=== PATIENT | male | born 2000 | race African-American/Black ===

== ENCOUNTER 2023-07-02 19:16 | Observation (INO) ==
[2023-07-02 20:34] LABS: Appearance Urine Clear (Clear); Bilirubin Urine Negative (Negative); Blood Urine Negative (Negative); Color Urine Yellow; Glucose Urine UA Negative (Negative); Ketones Urine Negative (Negative); Leukocyte Esterase Urine Negative (Negative); Nitrite Urine Negative (Negative); Protein Urine Negative (Negative); Specific Gravity Urine 1.021 (1.000-1.030); Urobilinogen Urine Negative (Negative); pH Urine 7.5 (4.5-7.5)
[2023-07-02 20:48] LABS: Alanine Aminotransferase 9 U/L (7-52); Albumin Globulin Ratio 0.8 (0.9-2); Albumin Level 3.1 gm/dl (3.4-5.0); Alkaline Phosphatase 80 U/L (34-104); Anion Gap 6 (3-11); Aspartate Aminotransferase 15 U/L (13-39); BUN Creatinine Ratio 12.3 (10-20); Bilirubin,Total 0.5 mg/dl (0.2-1.0); Blood Urea Nitrogen 8 mg/dl (6-23); Calcium 8.7 mg/dl (8.6-10.3); Carbon Dioxide 28 mmol/L (21-32); Chloride 104 mmol/L (98-107); Est GFR (African American) > 150.0 ml/min; Est GFR (Non-African American) 139.1 ml/min; Globulin 4.1 gm/dl (2.5-4.0); Glucose 78 mg/dl (70-99(Fasting)); Potassium 3.6 mmol/L (3.5-5.1); Sodium 138 mmol/L (136-145); Total Protein 7.2 gm/dl (6.0-8.3)
--- NOTE | 2023-07-02 20:52 | Emergency Department Note ---
Impression & Plan Suicidal ideation, COVID-19 ED Provider Note NAME: KEKE VILLAR AGE: 22 SEX: M : 2000 ARRIVES VIA: Walk-In INFORMANT: [Patient][mother] ED PROVIDER(S): [Kye Hoff MD] CHIEF COMPLAINT: Mental health evaluation HISTORY OF PRESENT ILLNESS: The patient is a 22-year-old male who presents to the ER for a mental health evaluation. The patient states that he has had some suicidal thoughts for years but things have worsened lately. He is not sure why. He sent a text to his family today saying that he wishes he were . He has no true plan outlined but he has thought about ways to harm himself. The patient has had a 50 or so pound weight loss over the last few months. He just has no appetite. The patient has never been hospitalized for mental health issues. He is not on any psychiatric meds. He has no outpatient psychiatric providers. PMHx/PSHx/Social Hx: See Below PHYSICAL EXAM: GENERAL: Patient is in no acute distress. Quite thin. HEENT: No acute trauma, normocephalic atraumatic, mucous membranes moist, no nasal congestion. NECK: No stridor, no adenopathy, no meningismus, trachea is midline. LUNGS: Clear to auscultation bilaterally, no wheeze, no rhonchi, breath sounds equal. HEART: Without murmurs gallops or rubs, regular rate and rhythm. ABDOMEN: Soft, nontender, no peritonitis. EXTREMITIES: No cyanosis, full range of motion of all the joints without pain or difficulty. NEUROLOGIC: Oriented x 3, no acute motor or sensory deficits, no focal weakness. SKIN: No jaundice, no diaphoresis. Psychiatric: Cooperative, voluntary, admits to suicidal ideation without any outlined plan. DIFFERENTIAL DIAGNOSIS: Psychosis, suicidality, depression anxiety, thyroid disorder, drug abuse, among others. EMERGENCY DEPARTMENT PROCEDURES: MEDICAL DECISION MAKING: There is a lower white count, hemoglobin and platelet count. This suppression could be secondary to viral illness. There is no renal failure or significant electrolyte abnormality. No concerning liver enzyme elevation. The patient appeared to be in a euthyroid state. Urinalysis did not show infection. Urine tox was positive for marijuana. COVID test returned positive. Aspirin, Tylenol and alcohol levels were undetectable. On exam, the patient was thin, he was not in any distress. He did admit to some suicidal ideation. Patient was seen by psychiatry case management. After a long discussion with the patient and his family, hospitalization for his suicidality was felt warranted. Unfortunately, with the positive COVID-19 finding, patient will need to be admitted to the medical service with a psychiatry consult. Of note, the patient is asymptomatic with the regard to his COVID-19 finding, he has not had cough, cold or congestion. I did speak with case management, the on-call hospitalist was consulted. Prior/Outside records/notes reviewed: Imaging/x-ray results per my interpretation: Chronic Medical/Social conditions affecting care: History of adoption. Care/Management discussed with: Psychiatry case management. Level of care consideration(s): After review of the information above and other included data: --I believe the patient requires escalation of care to admission DISPOSITION: Admission with psychiatry consult Past Med/Surg History Medical History No significant medical problems Social History Smoking Status: Current some day smoker Feels Safe at Home: Yes Gender Identity: Male Allergies Allergies Allergy/AdvReac Type Severity Reaction Status Date / Time No Known Allergies Allergy Verified 07/02/23 23:36 Home Meds Home Medications Medication Instructions Recorded Confirmed No Known Home Medications 07/02/23 07/02/23 Results & Data (ED) Vital Signs Vital Signs - 24 hr 07/02/23 19:26 07/02/23 21:17 Temperature 36.3 C L Temperature Source Temporal Artery Scan Pulse Rate 106 H Pulse Rate [Finger] 96 H Pulse Rhythm Regular Pulse Strength Normal Respiratory Rate 20 18 Respiratory Effort / Characteristics Non-Labored Spontaneous Respiratory Depth Normal Blood Pressure 112/65 Blood Pressure [Right Arm] 118/68 Blood Pressure Mean 80 Blood Pressure Mean [Right Arm] 84 Blood Pressure Position Sitting Pulse Oximetry 100 98 Oxygen Delivery Method Room Air Sepsis Recent Fever Within 48 Hours No Sepsis New/Unexplained Change in Mental Status N/A Sepsis Action Taken by Nursing No Action Required Home Medications Current Medication List: was personally reviewed by me Laboratory Data Attestation: I reviewed the patient's lab results. 07/02/23 20:06 07/02/23 20:06 Lab Results 07/02/23 07/02/23 07/02/23 Range/Units 19:42 20:06 20:54 WBC 3.69 L (4.8-10.8) K/ul RBC 4.55 L (4.70-6.10) M/uL Hgb 11.4 L (14.0-18.0) g/dl Hct 37.8 L (42.0-52.0) % MCV 83.1 (80.0-100.0) fL MCH 25.1 (25.0-34.0) pg MCHC 30.2 L (32.0-36.0) g/dL RDW Std Deviation 44.3 (36.4-46.3) fL RDW Coeff of Hima 14.6 H (11.5-14.5) % Plt Count 117 L (130-400) K/uL Immature Gran % (Auto) 0.5 % Neut % (Auto) 47.9 % Lymph % (Auto) 27.1 % Custer % (Auto) 22.0 % Eos % (Auto) 2.2 % Baso % (Auto) 0.3 % Neut # (Auto) 1.77 (1.40-6.50) K/uL Lymph # (Auto) 1.00 L (1.20-3.40) K/uL Custer # (Auto) 0.81 H (0.11-0.59) K/uL Eos # (Auto) 0.08 (0.00-0.50) K/uL Baso # (Auto) 0.01 (0.00-0.20) K/uL Immature Gran # (Auto) 0.02 (0.01-0.20) K/uL Platelet Estimate Decreased L (Normal) Giant Platelets 2+ Sodium 138 (136-145) mmol/L Potassium 3.6 (3.5-5.1) mmol/L Chloride 104 (98-107) mmol/L Carbon Dioxide 28 (21-32) mmol/L Anion Gap 6 (3-11) BUN 8 (6-23) mg/dl Creatinine 0.65 (0.6-1.4) mg/dl Est Cr Clr Drug Dosing 148.0 ml/min Est GFR ( Amer) > 150.0 ml/min Est GFR (Non-Af Amer) 139.1 ml/min BUN/Creatinine Ratio 12.3 (10-20) Glucose 78 (70-99(Fasting)) mg/dl Calcium 8.7 (8.6-10.3) mg/dl Total Bilirubin 0.5 (0.2-1.0) mg/dl AST 15 (13-39) U/L ALT 9 (7-52) U/L Alkaline Phosphatase 80 (34-104) U/L Total Protein 7.2 (6.0-8.3) gm/dl Albumin 3.1 L (3.4-5.0) gm/dl Globulin 4.1 H (2.5-4.0) gm/dl Albumin/Globulin Ratio 0.8 L (0.9-2) TSH 0.802 (0.300-4.500) uIu/ml Urine Color Yellow Urine Appearance Clear (Clear) Urine pH 7.5 (4.5-7.5) Ur Specific [place] 1.021 (1.000-1.030) Urine Protein Negative (Negative) Urine Glucose (UA) Negative (Negative) Urine Ketones Negative (Negative) Urine Blood Negative (Negative) Urine Nitrite Negative (Negative) Urine Bilirubin Negative (Negative) Urine Urobilinogen Negative (Negative) Ur Leukocyte Esterase Negative (Negative) Salicylates Cancelled < 3.0 L Urine Opiates Screen Neg (Neg) Ur Methadone, Qual Neg (Neg) Acetaminophen Cancelled < 3 L Urine Barbiturates Neg (Neg) Ur Phencyclidine (PCP) Neg (Neg) U Amphetamin/Meth Scrn Neg (Neg) MDMA (Ecstasy) Screen Neg (Neg) U Benzodiazepines Scrn Neg (Neg) Ur Cocaine Metabolite Neg (Neg) U Marijuana (THC) Screen Pos H (Neg) Ethyl Alcohol mg/dL < 10.0 (<10.0) mg/dl SARS-CoV-2, RNA, NAAT (NEGATIVE) 07/02/23 Range/Units 21:50 WBC (4.8-10.8) K/ul RBC (4.70-6.10) M/uL Hgb (14.0-18.0) g/dl Hct (42.0-52.0) % MCV (80.0-100.0) fL MCH (25.0-34.0) pg MCHC (32.0-36.0) g/dL RDW Std Deviation (36.4-46.3) fL RDW Coeff of Hima (11.5-14.5) % Plt Count (130-400) K/uL Immature Gran % (Auto) % Neut % (Auto) % Lymph % (Auto) % Custer % (Auto) % Eos % (Auto) % Baso % (Auto) % Neut # (Auto) (1.40-6.50) K/uL Lymph # (Auto) (1.20-3.40) K/uL Custer # (Auto) (0.11-0.59) K/uL Eos # (Auto) (0.00-0.50) K/uL Baso # (Auto) (0.00-0.20) K/uL Immature Gran # (Auto) (0.01-0.20) K/uL Platelet Estimate (Normal) Giant Platelets Sodium (136-145) mmol/L Potassium (3.5-5.1) mmol/L Chloride (98-107) mmol/L Carbon Dioxide (21-32) mmol/L Anion Gap (3-11) BUN (6-23) mg/dl Creatinine (0.6-1.4) mg/dl Est Cr Clr Drug Dosing ml/min Est GFR ( Amer) ml/min Est GFR (Non-Af Amer) ml/min BUN/Creatinine Ratio (10-20) Glucose (70-99(Fasting)) mg/dl Calcium (8.6-10.3) mg/dl Total Bilirubin (0.2-1.0) mg/dl AST (13-39) U/L ALT (7-52) U/L Alkaline Phosphatase (34-104) U/L Total Protein (6.0-8.3) gm/dl Albumin (3.4-5.0) gm/dl Globulin (2.5-4.0) gm/dl Albumin/Globulin Ratio (0.9-2) TSH (0.300-4.500) uIu/ml Urine Color Urine Appearance (Clear) Urine pH (4.5-7.5) Ur Specific [place] (1.000-1.030) Urine Protein (Negative) Urine Glucose (UA) (Negative) Urine Ketones (Negative) Urine Blood (Negative) Urine Nitrite (Negative) Urine Bilirubin (Negative) Urine Urobilinogen (Negative) Ur Leukocyte Esterase (Negative) Salicylates Urine Opiates Screen (Neg) Ur Methadone, Qual (Neg) Acetaminophen Urine Barbiturates (Neg) Ur Phencyclidine (PCP) (Neg) U Amphetamin/Meth Scrn (Neg) MDMA (Ecstasy) Screen (Neg) U Benzodiazepines Scrn (Neg) Ur Cocaine Metabolite (Neg) U Marijuana (THC) Screen (Neg) Ethyl Alcohol mg/dL (<10.0) mg/dl SARS-CoV-2, RNA, NAAT POSITIVE A* (NEGATIVE) Discharge Plan Visit Data Chief Complaint: Mental Health Evaluation Stated Complaint: HAVING SUICIDAL THOUGHTS ED Provider: Kye Hoff Discharge Problem: Suicidal ideation, COVID-19 Patient Disposition: Admitted As Inpatient Condition: Fair Forms Stand Alone Forms: [facility], Suicide Prevention Resources Prescriptions Prescriptions: No Action No Known Home Medications Referrals Referrals: PCP,NO [Primary Care Provider] -
[2023-07-02 21:01] LABS: Basophils # (auto) 0.01 K/uL (0.00-0.20); Basophils % (auto) 0.3 %; Eosinophils # (auto) 0.08 K/uL (0.00-0.50); Eosinophils % (auto) 2.2 %; Giant Platelets 2+; Hematocrit (blood only) 37.8 % (42.0-52.0); Hemoglobin 11.4 g/dl (14.0-18.0); Immature Granulocytes # (auto) 0.02 K/uL (0.01-0.20); Immature Granulocytes % (auto) 0.5 %; Lymphocytes % (auto) 27.1 %; Mean Corpuscular Hemoglobin 25.1 pg (25.0-34.0); Mean Corpuscular Hgb Conc 30.2 g/dL (32.0-36.0); Mean Corpuscular Volume 83.1 fL (80.0-100.0); Monocytes # (auto) 0.81 K/uL (0.11-0.59); Neutrophils # (auto) 1.77 K/uL (1.40-6.50); Neutrophils % (auto) 47.9 %; Platelet Count 117 K/uL (130-400); Platelet Estimate Decreased (Normal); RDW Coefficient of Variation 14.6 % (11.5-14.5); RDW Standard Deviation 44.3 fL (36.4-46.3); Red Blood Count 4.55 M/uL (4.70-6.10); White Blood Count 3.69 K/ul (4.8-10.8)
[2023-07-02 21:05] LABS: Thyroid Stimulating Hormone 0.802 uIu/ml (0.300-4.500)
[2023-07-02 21:13] LABS: Amphetamines+Metham, Urine Neg (Neg); Barbiturates, Urine Neg (Neg); Benzodiazepine, Urine Neg (Neg); Cocaine, Urine Neg (Neg); MDMA (Ecstacy), Urine Neg (Neg); Marijuana, Urine Pos (Neg); Methadone, Urine Neg (Neg); Opiate, Urine Neg (Neg); Phencyclidine, Urine Neg (Neg)
[2023-07-02 21:57] LABS: Acetaminophen < 3 ug/ml (10-30); Salicylate < 3.0 mg/dl (3.0-30)
[2023-07-03 02:04] LABS: Magnesium 1.9 mg/dl (1.7-2.4); Phosphorus 3.5 mg/dl (2.5-4.9)
--- NOTE | 2023-07-03 02:10 | History & Physical Report ---
Date of Service July 03, 2023 Assessment & Plan (1) Suicidal ideation: Plan: 22 M with no significant PMH, who presented to the emergency room for mental health evaluation for months of suicidal ideation. Stable, admitted to hospital for medical management of COVID-19, awaiting psychiatric evaluation. Suicidal ideation -No past medical history of anxiety, depression. Denies family history of behavioral health issues. * Admitted to [facility] (currently in [facility]) * Psychiatry consult placed appreciate evaluation, recs COVID-19 positive -Asymptomatic. Lab workup negative. -Will not treat. * Isolation precautions (COVID-19) placed Code: Full code Dispo: Med-Surg (U) FEN/GI: Regular diet (safe tray) DVT Prophylaxis: None PT/OT: No Consults: Psychiatry Case Management: No (2) COVID-19: History of Present Illness Primary Care Provider: NO PCP Odell is a 22-year-old male with no significant past medical history who presents to the emergency room after having several months of suicidal ideation without planning or action. Patient self presented with his mother for a mental health evaluation. Per ED note, patient had suicidal thoughts for years but that thoughts have worsened recently. He denies any acute stressors or major life changes. Again, per ED note, patient sent text message to his family explicitly stating that he wished he was . When asked in the ED, he denies having progressed beyond the contemplative stage. He denies any hallucinations, family history of behavioral health conditions, or outpatient behavioral health encounters. ED note had mentioned 50 pound weight loss. However, on admission interview, he notes that he went from approximately 150 to 125 pounds. In the ED, vitals were stable, wnl. Labs were notable for WBC-3.69, Hgb-11.4, and platelet count-117. CMP revealed no significant electrolyte derangements Ca-7.7. UA was negative but urine tox screen returned positive for marijuana. Respiratory viral panel was positive for COVID-19. However, the patient denies any URI symptoms. Allergies Allergy/AdvReac Type Severity Reaction Status Date / Time No Known Allergies Allergy Verified 07/02/23 23:36 Home Medications Medication Instructions Recorded Confirmed Type mirtazapine 30 mg tablet 30 mg PO HS #30 tabs 07/03/23 Rx Past Med/Surg History Medical History (Updated 07/03/23 @ 13:45 by Omer Acevedo MD) Persistent depressive disorder No significant medical problems Social History Smoking Status: Current some day smoker Tobacco Type: Cigarettes and E-cigarettes / Vaping Second Hand Exposure: No; Do You Dip or Chew Tobacco: No; Hx Alcohol Use: No Hx Substance Use: Yes Last Used Substance: Days (ago) Preferred Language: [place] Communication Ability: Effective Supervisor Frame Sample And Pattern Required: No Beliefs That Will Affect Care: None Current Living Situation: Family Current Living Situation Comment: Lives in apartment with siblings Feels Safe at Home: Yes Gender Identity: Male Assistive Devices: None Review of Systems Review of Systems: All systems reviewed & are unremarkable except as noted in HPI & below Physical Exam Physical Exam: General: Pleasant, calm appearing young man in no acute distress HEENT: PERRLA. Normal conjunctiva, anicteric sclera. Oropharynx normal. Respiratory: Normal respiratory effort, CTABL. Cardiovascular: RRR without murmurs, gallops, or rubs. No pedal edema. GI: Soft abdomen with normal bowel sounds heard on auscultation. Nontender x4 qu adrants Neuro: Alert and oriented x3. Results & Data Results & Data Vital Signs (Past 12 Hours) Vital Signs Temp Pulse Pulse Resp BP BP Pulse Ox 07/03/23 00:00 102 H 16 112/65 98 07/02/23 21:17 96 H 18 118/68 98 07/02/23 19:26 36.3 C L 106 H 20 112/65 100 O2 Del Method 07/03/23 00:00 Room Air 07/02/23 21:17 07/02/23 19:26 Room Air Supervising Physician Co-Signing Physician Notes Attending addendum: I have physically seen this patient, have supervised the medical residents activities, and agree with the H&P unless as otherwise noted. Assessment and Plan: Suicidal ideation- [facility] Consult to psychiatry COVID-19 positivity- No active infection Will make precautions per protocol Resident Activity Tracking Resident Involvement: Resident Care Provided Care Provided: Adult Hospital Medicine
[2023-07-03 04:35] LABS: Anion Gap 5 (3-11); BUN Creatinine Ratio 13.9 (10-20); Blood Urea Nitrogen 10 mg/dl (6-23); Calcium 7.7 mg/dl (8.6-10.3); Carbon Dioxide 27 mmol/L (21-32); Chloride 107 mmol/L (98-107); Creatinine Clr Calc Pharmacy 133.6 ml/min; Est GFR (African American) > 150.0 ml/min; Est GFR (Non-African American) 133.3 ml/min; Glucose 78 mg/dl (70-99(Fasting)); Potassium 3.9 mmol/L (3.5-5.1); Sodium 139 mmol/L (136-145)
--- NOTE | 2023-07-03 07:20 | Hospitalist Progress Note ---
Date of Service July 03, 2023 Assessment & Plan (1) COVID-19: (2) Suicidal ideation: Plan Odell Lozano is a 22 year-old male no significant PMH, who presented to the emergency room for mental health evaluation for months of suicidal ideation. Stable, admitted to hospital for medical management of COVID-19, awaiting psychiatric evaluation. Suicidal ideation -No past medical history of anxiety, depression. Denies family history of behavioral health issues. * Admitted to [facility] (currently in [facility]) * Psychiatry consult placed appreciate evaluation, recs COVID-19 positive -Asymptomatic. Lab workup negative. -Will not treat. * Isolation precautions (COVID-19) placed Code: Full code Dispo: Med-Surg ([facility]) FEN/GI: Regular diet (safe tray) DVT Prophylaxis: None PT/OT: No Consults: Psychiatry Case Management: No Admission and Anticipated Discharge Date Admission Date: July 03, 2023 Review of Systems Review of Systems: As per above Results & Data Results & Data Vital Signs (Past 12 Hours) Vital Signs Temp Pulse Pulse Resp BP BP Pulse Ox 07/03/23 00:00 102 H 16 112/65 98 07/02/23 21:17 96 H 18 118/68 98 07/02/23 19:26 36.3 C L 106 H 20 112/65 100 O2 Del Method 07/03/23 00:00 Room Air 07/02/23 21:17 07/02/23 19:26 Room Air Resident Activity Tracking Resident Involvement: Resident Care Provided Care Provided: Adult Hospital Medicine
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
--- NOTE | 2023-07-03 15:04 | Discharge Summary ---
Date of Service July 03, 2023 Admission HPI Per Admitting Provider Odell is a 22-year-old male with no significant past medical history who presents to the emergency room after having several months of suicidal ideation without planning or action. Patient self presented with his mother for a mental health evaluation. Per ED note, patient had suicidal thoughts for years but that thoughts have worsened recently. He denies any acute stressors or major life changes. Again, per ED note, patient sent text message to his family explicitly stating that he wished he was . When asked in the ED, he denies having progressed beyond the contemplative stage. He denies any hallucinations, family history of behavioral health conditions, or outpatient behavioral health encounters. ED note had mentioned 50 pound weight loss. However, on admission interview, he notes that he went from approximately 150 to 125 pounds. In the ED, vitals were stable, wnl. Labs were notable for WBC-3.69, Hgb-11.4, and platelet count-117. CMP revealed no significant electrolyte derangements Ca-7.7. UA was negative but urine tox screen returned positive for marijuana. Respiratory viral panel was positive for COVID-19. However, the patient denies any URI symptoms. Admission Exam Per Admitting Provider General: Pleasant, calm appearing young man in no acute distress HEENT: PERRLA. Normal conjunctiva, anicteric sclera. Oropharynx normal. Respiratory: Normal respiratory effort, CTABL. Cardiovascular: RRR without murmurs, gallops, or rubs. No pedal edema. GI: Soft abdomen with normal bowel sounds heard on auscultation. Nontender x4 quadrants Neuro: Alert and oriented x3. Principal Diagnosis COVID, persistent depressive disorder Discharge Exam Constitutional WD/WN, vitals as above Eyes PERRL, conjunctivae normal, anicteric sclerae Respiratory normal respiratory effort, lungs clear to auscultation Cardiovascular RRR, no murmur, no edema Chest (Breasts) normal inspection/palpation of breasts Gastrointestinal (Abdomen) BS+, non-tender, not distended, soft, no rebound or guarding. Skin no rashes, warm and dry Psychiatric Orientation: oriented x 3 Eye Contact: + fair eye contact Speech: normal rate/rhythm/volume of speech Affect: euthymic affect Discharge Data Allergies Allergy/AdvReac Type Severity Reaction Status Date / Time No Known Allergies Allergy Verified 07/02/23 23:36 Consultations 07/02/23 23:33 ED Decision to Admit Stat 07/03/23 06:59 Consult Psychiatry Routine Hospital Course (1) COVID-19: (2) Suicidal ideation: Plan Odell Lozano is a 22 year-old male no significant PMH, who presented to the emergency room for mental health evaluation for months of suicidal ideation. Suicidal ideation: -Evaluated by psychiatry who determined patient's risk of completing suicide not markedly elevated, no plan or intent. -Symptoms sufficiently chronic for Persistent Depressive (Dysthymic) disorder. -Given GI symptoms and potential GI side effects of SSRIs recommended trialing mirtazapine. -Recommended starting mirtazapine at 30mg qHS. -Told patient to call [facility] to establish with PCP, hospital follow up in 2-3 weeks, f/u 5-6 weeks for therapeutic dosing. -Gave patient phone number of [facility]. COVID-19 positive: -Asymptomatic. Lab workup revealed WBC 3.69, Hgb 11.4, Plt 117 consistent with viral infection. -No treatment given since asymptomatic, vitals stable. Gastrointestinal Discomfort: -Sx of abdominal cramping with diarrhea on and off since December. -No hx of undercooked food, travel, bloody diarrhea, rectal pain. -Pain resolves with bowel movement or gas. -Likely IBS given benign symptoms. -Patient requested GI evaluation, will set up for outpatient eval. -Recommended patient look up FODMAP diet. -Cannabis + in urine toxicology. likely contributing as well Total Time Total Time Spent Total Time Spent (In Minutes): Please see attending attestation. Discharge Plan Discharge Items Patient Disposition: Home - Self-Care Reason For Visit: MENTAL HEALTH EVALUATION Discharge Diagnosis: COVID19 Condition on Discharge: Fair Activity: Per Instructions section Non-emergency contact: Primary Care Provider and Traffic Superintendent Call non-emergency contact if: your pain is worsening, your pain is unusual for you and your temperature is above 101 Follow-up/Referrals: Kelsy Avalos [Outside Practitioners] - 07/24/23 2:40 pm (PCP appt at [facility]) PCP,NO [Primary Care Provider] - Diet: Regular Addtl Attending Provider Instructions: You came to the hospital for concern over your mental health. You were found to have COVID19 while you were here but your condition and vitals remained stable. Your blood work revealed a minor decrease in white blood cell count, hemoglobin, and platelets which is consistent with a viral infection. You spoke with our psychiatrist who recommended you start a medication for your mental health called mirtazapine. This will be a daily medication you can take before bedtime. Please follow up with a imaging administrator for your abdominal pain. Please call to set up an appointment with the imaging administrator at the [facility] office. Please follow up with a primary care provider for follow up on the medication you will be started on. Please call [phone] to schedule an appointment for follow up 2-3 weeks from now for hospital follow up. You will also need an appointment for 5-6 weeks from now for follow up on therapeutic dose of your mirtazapine. This will be at the [facility]. How to help yourself feel better: Promise yourself that you will not do anything extreme if you have suicidal feelings. Remember, there is hope. Many people have gotten through suicidal thoughts and feelings, and you can too. If you have had these feelings before, remind yourself that you can get through them again. Let family, friends, teachers, or counselors know how you are feeling. Try not to separate yourself from those who care about you and want to help you. Talk with someone every day, even if you do not feel sociable. [id number] conversation is best to help them understand your feelings. Contact a mental health care provider and work with this person regularly. Make a safety plan that you can follow during a crisis. Include phone numbers of suicide prevention hotlines, mental health professionals, and trusted friends and family members you can call during an emergency. Save these numbers on your phone. If you are thinking of taking a lot of medicine, give your medicine to someone who can give it to you as prescribed. If you are on antidepressants and are concerned you will overdose, tell your health care provider so that he or she can give you safer medicines. Try to stick to your routines. Follow a schedule every day. Make self-care a priority. Make a list of realistic goals, and cross them off when you achieve them. Accomplishments can give you a sense of worth. Wait until you are feeling better before doing things that you find difficult or unpleasant. Do things that you have always enjoyed to take your mind off your feelings. Try reading a book, or listening to or playing music. Spending time outside, in nature, may help you feel better. Follow these instructions at home: Work with a mental health care provider as needed. Eat a well-balanced diet, and eat regular meals. Get plenty of rest. Exercise if you are able. Just 30 minutes of exercise each day can help you feel better. Take [id number] and prescription medicines only as told by your health care provider. Ask your mental health care provider about the possible side effects of any medicines you are taking. Do not use alcohol or drugs, and remove these substances from your home. Remove weapons, poisons, knives, and other deadly items from your home. General recommendations Keep your living space well lit. When you are feeling well, write yourself a letter with tips and support that you can read when you are not feeling well. Remember that life's difficulties can be sorted out with help. Conditions can be treated, and you can learn behaviors and ways of thinking that will help you. Pending Studies at Discharge: No Stand-Alone Forms: My [facility] [employer], Smoking Cessation Medications and DC Order Prescriptions: New mirtazapine 30 mg tablet 30 mg PO HS Qty: 30 0RF Discharge Orders: Discharge Order (Routine); Ordered 07/03/23 Ordered By: Tim Dunham Admission Data Admit Date/Time: 07/03/23 01:16 Attending Provider: Prabha Omer Admit Provider: Getachew Bruner Primary Care Provider: PCP,NO Other Providers: Marty Kruger; Beckie Sandhu; Sugar Sotelo; Jd Zaidi; Omer Acevedo Supervising Physician Co-Signing Physician Notes Attending Physician Supervision Note: I independently interviewed and examined the patient and verified the dubose history and physical, reviewed labs and image studies and agree with findings and care plan noted above. Resident Activity Tracking Resident Involvement: Resident Care Provided Care Provided: Adult [facility]
--- NOTE | 2023-07-04 03:03 | Billing Data ---
Date of Service July 04, 2023 Coding Level of Care Code 12700 INT INP/OBS CARE
--- NOTE | 2023-07-04 11:07 | Pharmacy Report ---
ED Pharmacist Progress Note - ED Pharmacist Progress Note Date of Service:: July 04, 2023 Notes:: Received call from patient's mother re: prescription sent in to pharmacy. She said she had requested [facility] but was told [facility] and there was no pharmacy. Reviewed prescription and this was sent to [facility] in [facility] not the [facility] (which has no pharmacy). 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 She states she will go to that [facility] to supervisor picking crew. She has no further questions.
[2023-07-05 08:27] LABS: Marijuana Quant, GCMS Urine 147 ng/mL (<5)
== END 2023-07-03 15:32 | disposition home or self-care (01) | DRG 178 ==
LOC: ED 19:16 → SUATTDRO 07-03 01:16 → EDINP 07-03 01:16 → INTOOBSV 07-03 01:16 → EDINP 07-03 15:24

== ENCOUNTER 2024-01-01 14:00 | Inpatient (IN) ==
--- NOTE | 2024-01-01 14:38 | Emergency Department Note ---
Impression & Plan Depression ED Provider Note Provider: Amandeep Calvin MD DATE OF SERVICE: 01/01/2024 CHIEF COMPLAINT: Depression some thoughts of suicide HISTORY OF PRESENT ILLNESS: Patient is a 23-year-old gentleman history of Crohn's disease presenting here today reporting ongoing issues he describes with depression. Reports has had issues on and off for some time. Was here in June but had asymptomatic COVID and was only here a day or so medically until discharge. Reports last several days has been having some thoughts of suicide and possibly plan but has not acted further attempted. Reports family history of other siblings who have attempted suicide in the past. States he is on bupropion but that was not helping so he stopped it recently. States he has had a counselor but not a true "therapist "and believes that he needs to come in and be diagnosed with a condition and started on medication. No HI reported or hallucinations. 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 EOMI. NECK: Trachea midline. ENT: Mucous membranes pink and moist. LUNGS: Airway patent. No retractions or tachypnea SKIN: Acyanotic, warm, dry, without rashes EXTREMITIES: Without swelling, tenderness or deformity NEUROLOGICAL: No focal deficits. No aphasia. No facial droop or slurred speech. Ambulatory. Psych: Flattened affect. Reports suicidal thoughts and plan although does not elaborate. Denies any HI or hallucinations. Denies actual attempt to harm self. Patient's laboratory studies reviewed. Differential includes Mood disorder, infection, hypoglycemia, electrolyte abnormalities, cardiac sources, intracerebral event, toxicologic, trauma, neurologic, as well as other pathologies. IMPRESSION/MEDICAL DECISION MAKING: Patient requesting evaluation and formal diagnosis of conditions and initiation of medications. Has tried bupropion in the past with improvement. Suicidal thoughts developing with some plans though on his initial eval with me he does not elaborate. Case management further discussed and evaluated him as well. Basic blood work obtained here today. No fever or significant new abdominal symptoms reported by the patient he is stable on his home Crohn's medication. Bloodwork obtained here without significant cytosis with minimal anemia. This appears chronic. No severe electrolyte abnormalities signs of hepatitis. Negative COVID and Tylenol aspirin and alcohol levels. Case management discussed further options with the patient and his wishes for possible referral. Evaluated by [facility] and accepted there for further care. DIAGNOSIS: Depression DISPOSITION: Accepted to [facility] on 201 Past Med/Surg History Problem List (Updated 01/01/24 @ 17:08 by Amandeep Calvin M.D.) Depression (Acute) Medical History (Updated 01/01/24 @ 17:08 by Amandeep Calvin M.D.) Persistent depressive disorder COVID-19 Suicidal ideation No significant medical problems Social History Smoking Status: Current every day smoker Tobacco Type: Cigarettes and E-cigarettes / Vaping Second Hand Exposure: No; Do You Dip or Chew Tobacco: No; Hx Alcohol Use: No Hx Substance Use: Yes Last Used Substance: Days (ago) Preferred Language: Korean Communication Ability: Effective [employer]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 Beliefs That Will Affect Care: None Current Living Situation: Family Current Living Situation Comment: Lives in apartment with siblings Feels Safe at Home: Yes Gender Identity: Male Assistive Devices: None Allergies Allergies Allergy/AdvReac Type Severity Reaction Status Date / Time No Known Allergies Allergy Verified 07/02/23 23:36 Home Meds Home Medications Medication Instructions Recorded Confirmed budesonide 3 mg 9 mg PO QAM 01/01/24 01/01/24 capsule,delayed,extended release bupropion HCl 100 mg tablet,12 hr 100 mg PO QAM 01/01/24 01/01/24 sustained-release famotidine 20 mg tablet 20 mg PO BID 01/01/24 01/01/24 mesalamine 1.2 gram tablet,delayed 1.2 g PO TID 01/01/24 01/01/24 release omeprazole 20 mg capsule,delayed 20 mg PO QAM 01/01/24 01/01/24 release Previous Rx's Medication Instructions Recorded mirtazapine 30 mg tablet 30 mg PO HS #30 tabs 07/03/23 Results & Data (ED) Vital Signs Vital Signs - 24 hr 01/01/24 14:05 Temperature 37 C Temperature Source Temporal Artery Scan Pulse Rate 131 H Respiratory Rate 18 Respiratory Effort / Characteristics Non-Labored Respiratory Depth Normal Respiratory Pattern Regular Blood Pressure 110/75 Blood Pressure Mean 86 Pulse Oximetry 97 Oxygen Delivery Method Room Air Sepsis Recent Fever Within 48 Hours No Sepsis New/Unexplained Change in Mental Status N/A Sepsis Action Taken by Nursing No Action Required Laboratory Data 01/01/24 14:24 01/01/24 14:24 Lab Results 01/01/24 Range/Units 14:24 WBC 6.28 (4.8-10.8) K/ul RBC 4.81 (4.70-6.10) M/uL Hgb 11.9 L (14.0-18.0) g/dl Hct 37.8 L (42.0-52.0) % MCV 78.6 L (80.0-100.0) fL MCH 24.7 L (25.0-34.0) pg MCHC 31.5 L (32.0-36.0) g/dL RDW Std Deviation 43.1 (36.4-46.3) fL RDW Coeff of Hima 15.1 H (11.5-14.5) % Plt Count 243 (130-400) K/uL MPV 13.5 H (9.4-12.4) fL Immature Gran % (Auto) 0.3 % Neut % (Auto) 60.1 % Lymph % (Auto) 15.1 % Bowman % (Auto) 20.2 % Eos % (Auto) 3.8 % Baso % (Auto) 0.5 % Neut # (Auto) 3.77 (1.40-6.50) K/uL Lymph # (Auto) 0.95 L (1.20-3.40) K/uL Bowman # (Auto) 1.27 H (0.11-0.59) K/uL Eos # (Auto) 0.24 (0.00-0.50) K/uL Baso # (Auto) 0.03 (0.00-0.20) K/uL Immature Gran # (Auto) 0.02 (0.01-0.20) K/uL Sodium 135 L (136-145) mmol/L Potassium 3.9 (3.5-5.1) mmol/L Chloride 103 (98-107) mmol/L Carbon Dioxide 25 (21-32) mmol/L Anion Gap 7 (3-11) BUN 9 (6-23) mg/dl Creatinine 0.85 (0.6-1.4) mg/dl Est Cr Clr Drug Dosing 117.2 ml/min Est GFR ( Amer) 143.4 ml/min Est GFR (Non-Af Amer) 123.7 ml/min BUN/Creatinine Ratio 10.6 (10-20) Glucose 100 H (70-99(Fasting)) mg/dl Calcium 8.9 (8.6-10.3) mg/dl Total Bilirubin 0.6 (0.2-1.0) mg/dl AST 19 (13-39) U/L ALT 9 (7-52) U/L Alkaline Phosphatase 84 (34-104) U/L Total Protein 6.9 (6.0-8.3) gm/dl Albumin 3.2 L (3.4-5.0) gm/dl Globulin 3.7 (2.5-4.0) gm/dl Albumin/Globulin Ratio 0.9 (0.9-2) TSH 1.704 (0.300-4.500) uIu/ml Salicylates < 3.0 L (3.0-30) mg/dl Acetaminophen < 3 L (10-30) ug/ml Ethyl Alcohol mg/dL < 10.0 (<10.0) mg/dl SARS-CoV-2, RNA, NAAT NEGATIVE (NEGATIVE) Discharge Plan Visit Data Chief Complaint: Mental Health Evaluation Stated Complaint: suicidal thoughts ED Provider: Amandeep Calvin Discharge Problem: Depression Patient Disposition: Admitted As Inpatient Forms Stand Alone Forms: [facility], Suicide Prevention Resources Prescriptions Prescriptions: No Action mirtazapine 30 mg tablet 30 mg PO HS Qty: 30 0RF budesonide 3 mg capsule,delayed,extend.release 9 mg PO QAM bupropion HCl 100 mg tablet sustained-release 12 hr 100 mg PO QAM famotidine 20 mg tablet 20 mg PO BID omeprazole 20 mg capsule,delayed release(DR/EC) 20 mg PO QAM mesalamine 1.2 gram tablet,delayed release (DR/EC) 1.2 g PO TID Referrals Referrals: PCP,NO [Primary Care Provider] - Discharge Problem: Depression Qualifiers: Depression Type: major depressive disorder Major depression recurrence: r ecurrent Active/Remission status: currently active Major depression episode severity: unspecified Qualified Code(s): F33.9 - Major depressive disorder, recurrent, unspecified
[2024-01-01 15:04] LABS: Basophils # (auto) 0.03 K/uL (0.00-0.20); Basophils % (auto) 0.5 %; Eosinophils # (auto) 0.24 K/uL (0.00-0.50); Eosinophils % (auto) 3.8 %; Hematocrit (blood only) 37.8 % (42.0-52.0); Hemoglobin 11.9 g/dl (14.0-18.0); Immature Granulocytes # (auto) 0.02 K/uL (0.01-0.20); Immature Granulocytes % (auto) 0.3 %; Lymphocytes # (auto) 0.95 K/uL (1.20-3.40); Lymphocytes % (auto) 15.1 %; Mean Corpuscular Hemoglobin 24.7 pg (25.0-34.0); Mean Corpuscular Hgb Conc 31.5 g/dL (32.0-36.0); Mean Corpuscular Volume 78.6 fL (80.0-100.0); Mean Platelet Volume 13.5 fL (9.4-12.4); Monocytes # (auto) 1.27 K/uL (0.11-0.59); Monocytes % (auto) 20.2 %; Neutrophils # (auto) 3.77 K/uL (1.40-6.50); Neutrophils % (auto) 60.1 %; Platelet Count 243 K/uL (130-400); RDW Coefficient of Variation 15.1 % (11.5-14.5); RDW Standard Deviation 43.1 fL (36.4-46.3); Red Blood Count 4.81 M/uL (4.70-6.10); White Blood Count 6.28 K/ul (4.8-10.8)
[2024-01-01 15:09] LABS: Acetaminophen < 3 ug/ml (10-30); Albumin Globulin Ratio 0.9 (0.9-2); Albumin Level 3.2 gm/dl (3.4-5.0); BUN Creatinine Ratio 10.6 (10-20); Bilirubin,Total 0.6 mg/dl (0.2-1.0); Calcium 8.9 mg/dl (8.6-10.3); Creatinine Clr Calc Pharmacy 117.2 ml/min; Est GFR (African American) 143.4 ml/min; Est GFR (Non-African American) 123.7 ml/min; Globulin 3.7 gm/dl (2.5-4.0); Potassium 3.9 mmol/L (3.5-5.1); Salicylate < 3.0 mg/dl (3.0-30); Total Protein 6.9 gm/dl (6.0-8.3)
[2024-01-01 15:24] LABS: Thyroid Stimulating Hormone 1.704 uIu/ml (0.300-4.500)
[2024-01-01] MEDS ORDERED: SODIUM CHLORIDE 0.65% NA SOLN 45 ML (OCEAN) PRN (17:30)
[2024-01-01] MEDS ORDERED: hydrOXYzine HCl 25 MG TAB PO PRN ×2 (17:30)
[2024-01-01] MEDS ORDERED: ALUMINUM/MAGNESIUM SUSP 30 ML UDC PO PRN (17:30)
[2024-01-01] MEDS ORDERED: BISMUTH SUBSALICYLATE LIQD 236 ML PO PRN (17:30)
[2024-01-01] MEDS ORDERED: MAGNESIUM HYDROXIDE SUSP 30 ML UDC PO PRN (17:30)
[2024-01-01] MEDS: MIRTAZAPINE TAB 15 MG TAB PO ONE (20:33)
--- OUTSIDE RECORDS SUMMARY | 2024-01-02 08:55 | External Medical Summary | Continuity of Care Document ---
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 Role Phone Kelsy Avalos Primary Care Physician [phone] [facility]counter [facility] [id number] Date(s): 08/23/23 - 08/23/23 [place] [address] [facility] A [address] [address] [phone] Encounter Diagnosis Crohn's disease(Discharge Diagnosis) - 08/23/23 Acid reflux(Discharge Diagnosis) - 08/23/23 Discharge Disposition: Home or Self Care Attending Physician: KUNAL Cordero Kelli Jo Referring Physician: BAILEY Avalos Tara Allergies, Adverse Reactions, Alerts No Known Allergies Assessment and Plan Extracted from: Title:Office Visit Note Author:KUNAL Cordero Kell i Jo Date:08/23/23 1.Crohn's disease Patient is a pleasant [id number]-[id number] who presents with his mothertoday for newdiagnosisofCrohn's disease oncolonoscopy. - Discussed diagnosis of Crohn's disease with patient. Shared [email or web address] with mother and pt for additional reading. -Will initiatePentasaat this time. - Repeat fecal calprotectin in 6 to 8 weeks -Complete CBC, CMP, B12, magnesium, vitamin Dprior to follow-up - 08/13/2023 colonoscopy demonstratingCrohn's diseasefrom the splenic flexure to the ascending colon. Ileum was not intubated inflammation was noted at the ileocecal valve. -Patient has a history of depression and anxiety with suicidal thoughts secondary tohis undiagnosed Crohn's. Patientwas unable to attendfaakly medicine follow-up appointment this week secondary to mother's influenza. Encouraged them in the future to call [facility] if[facility] is [facility]. Had patient schedule follow-up with ANGELA Lowery. 2.Acid reflux Patient reports that he continues to have acid reflux 6 out of 7 days a week despite omeprazole use. -Discussed with patientto take his omeprazole on an empty stomach first thing in the morning 30 minutes before breakfast. He had been taking this with food. -Added famotidine twice daily at this time -Will reevaluate at follow-up -Did encourage reduction and ultimatelycessation of marijuana use. -All scripts were sent with patient to [facility] pharmacy. GI follow up in2 months, sooner if needed. I have spent 50 minutes in evaluation, education and documentation of this pt in both face to face and non-face to face activities. Medications famotidine 20 mg oral tablet Start: 08/23/23 11:52:00 EST, 1 tab, PO, bid, Disp# 60 tab, Refills: 11 Start Date: 08/23/23 Stop Date: 08/17/24 Status: Ordered mirtazapine 30 mg oral tablet Start: 07/24/23 14:58:00 EST, 1 tab, PO, qhs Start Date: 07/24/23 Status: Ordered omeprazole 20 mg oral delayed release capsule Start: 08/23/23 11:47:00 EST, 1 cap, PO, Daily, Disp# 30 cap, Refills: 11 Start Date: 08/23/23 Stop Date: 08/17/24 Status: Ordered Pentasa 500 mg oral capsule, extended release Start: 08/23/23 11:23:00 EST, 2 cap, PO, tid, Disp# 540 cap, Refills: 3 Start Date: 08/23/23 Stop Date: 08/17/24 Status: Ordered Mental Status 08/23/23 Barriers to Learning one year None evide nt Mandatory Health Literacy Documentation Yes Health Literacy Communication Barriers N ever Primary Language Malawian Problem List Condition Confirmation Course Effective Dates Status Health St atus Informant Crohn's disease Confirmed Active Diagnosis Diagnosis Type Effective Dates Health Status inical Service Informant Crohn's disease Discharge Diagnosis 08/23/23 Acid reflux Discharge Diagnosis 08/23/23 Procedures Procedure Date Related Diagnosis Body Site Status Colonoscopy 1, 2, 3 08/13/23 Compl eted EGD - esophagogastroduodenoscopy 4, 5 08/13/23 Completed 1Followup with our GI office to discuss treatment options for the crohns disease which is likely causing loose stools and abdominal pain. 2- Redundant colon. - Inflammation noted from the splenic flexure to the ascending colon with large skip areas of normal tissue. There were ulcers and psuedopolyp formation consistent with moderate crohns disease. Biopsies were taken of inflammation in the ascending colon and hepatic flexure. Mild inflammation was noted at the mouth of the ileocecal valve and was not able to intubate the ileum with gentle maneuvers so stopped - The examination was otherwise normal on direct and retroflexion views. 3C) Ascending colon, biopsy: Patchy colitis with focal erosion associated with minimal architectural change but scattered poorlyformed intramucosal granulomas. D) Colon-hepatic flexure, biopsy: Colitis with small amount of submucosa containing poorly formed non-necrotizing granulomas with focal erosion and granulation tissue. COMMENT: The histologic findings within part C and D are most worrisome for Crohn's disease. An infectious etiology should be excluded clinically. 4- Z-line regular, 40 cm from the incisors. - Normal esophagus. - Normal antrum. Biopsied. - Normal second portion of the duodenum. Biopsied. - The examination was otherwise normal. 5A) Duodenum, biopsy: No significant pathology. B) Gastric antrum, biopsy: Minimal chronic inflammation and foveolar hyperplasia. COMMENT: Histologic features of Helicobacter pylori gastritis not identified Vital Signs Most recent to oldest [Reference Range]: 1 Patient Weight 63.1 kg (08/23/23 11:18 AM) Heart Rate 96 bpm (08/23/23 11:18 AM) Respiratory Rate 18 br/min (08/23/23 11:18 AM) Blood Pressure 102/72mmHg (08/23/23 11:18 AM) Social History Social History Type Response Smoking Status Never smoked cigaret jose c Sex Male Gastroenterology Outpatient Note * KUNAL Cordero, Doris Sorenson: PERFORM Event Display: Gastroenterology Outpt Note Authored Date: [id number] Chief Complaint New GI patient. Referred for Crohn's after colonoscopy History of Present Illness The patient is a pleasant [id number] presents today for new patient evaluation of Crohn's disease.[facility],and past medical historyreviewed. Prior records: 07/24/2023 OV (Robbie): Pt is here to establish. He was recently hospitalized for passive suicidal ideation due to ongoing GI issues. He has had GI issues since December 2022. He states he has upper abd pain that feels like a broken egg is being pushed through his intestines. He denies constipation. His stools are generally loose and he has two a day. He denies nausea and vomiting. No blood in stools or dark tarry stools. He denies that certain foods aggravate his abd pain. He denies etoh use or tobacco use. He does use marijuana several times a week once a day.He denies any other medical issues.He was diagnosed during hospital stay with Depressive disorder and was started on mirtazapine. Hestates he feel it is helping. Has only been on it for approx 3 weeks. He denies SI or HI. He statesthat he has not been sleeping well due to his GI symptoms. 07/25/2023 labs: Fecal calprotectin >3000 08/13/2023olonoscopy:- Redundant colon. - Inflammation noted from the splenic flexure to the ascending colon with large skip areas of normal tissue. There were ulcers and pseudopolyp formation consistent with moderate crohns disease.Mild inflammation was noted at the mouth of the ileocecal valve and was not able to intubate the ileum. The examination was otherwise normal. Pathology:C) Ascending colon, biopsy: Patchy colitis with focal erosion associated with minimal architectural change butscattered poorly formed intramucosal granulomas. D) Colon-hepatic flexure, biopsy: Colitis with small amount of submucosa containing poorly formed non-necrotizing granulomas with focal erosion and granulation tissue. 08/13/2023 EGD:- Z-line regular. - Normal esophagus. - Normal antrum.- Normal second portion of the duodenum.- The examination was otherwise normal. Pathology:A) Duodenum, biopsy: No significantpathology. B) Gastric antrum, biopsy: Minimal chronic inflammation and foveolar hyperplasia. COMMENT: Histologic features of Helicobacter pylori gastritis not identified 08/23/2023OV (Simco): Patient presents today as a new patient to the GI officewith a new diagnosis of Crohn's disease. He is present with his mother. Patient states that around somewhere from December to Augusthe began to have abdominal pain with eatingand occasionally with drinking water. This pain ultimately became more frequent. He reports that he has the pain more in the right lower quadrant but also it is in the left lower quadrant. Prior to the symptoms he would have a Beaver type IV bowel movement dailybut more presently at the Beaver type V bowel movement 2-3 times a day. He does deny melena, hematochezia or mucus in his stools. He denies fever or chills but has noted night sweats with his symptoms. He is more tired than normal. Denies new rashes or mouth ulcers. He has no joint pain or swelling. He does note unintentional weight loss likely secondary to abdominal pain and reduced appetite. He denies chest pain or pressure. He is having heartburn 6 out of 7 days a week despitehis month-long use of omeprazole currently. He does state that he has not been taking this on an empty stomach. He denies routine use of aspirin or NSAIDs. He denies dysphagia, cough, hoarse voice or sore throat. He has hadno nausea or vomiting. He does admit to early satiety and loss of appetite. He has no bloating,diarrhea or constipation. He does not follow any specialized diets at this time. Abdominal surgical history: N/A IBD History - Diagnosis:08/13/2023 - Previous treatments:None - Current treatment:None - IBD surgeries: None - Extraintestinal manifestations (joint, eye, mouth ulcers, skin lesions): Denies - Upper GI or Perianal involvement: None - FHx of IBD or CRC:None - Smoking history:Vapes marijuana Social History: Tobacco: denies ETOH:Denies Recreational Drug use including Marijuana: Daily marijuana vapinghelps abdominal pain Works at [employer] part-time Family:Lives in his own apartment, no children, 0 pets Family History: Deniesfamilyhistory of colorectal cancer, liver disease, IBD, IBS, pancreatic disease, celiac disease No further complaints or concerns today. Physical Exam Vitals & Measurements HR:96(Monitored) RR:18 BP:102/72 SpO2:97% WT:63.1kg WT:63.100kg(Dosing) General:Alert and oriented, No acute distress, appears stated age HENT:Normocephalic, normal hearing Respiratory: Respiration are non-labored, pt speaking in complete sentences,and no evidence of respiratory distress is noted Integumentary:Exposed skin viewable is dry and intact Psychiatric:Cooperative, appropriate mood & affect, Normal judgement Assessment/Plan 1.Crohn's disease Patient is a pleasant [id number] who presents with his mothertoday for newdiagnosisofCrohn's disease oncolonoscopy. - Discussed diagnosis of Crohn's disease with patient. Shared [email or web address] with mother and pt for additional reading. -Will initiatePentasaat this time. - Repeat fecal calprotectin in 6 to 8 weeks -Complete CBC, CMP, B12, magnesium, vitamin Dprior to follow-up - 08/13/2023 colonoscopy demonstratingCrohn's diseasefrom the splenic flexure to the ascending colon. Ileum was not intubated inflammation was noted at the ileocecal valve. -Patient has a history of depression and anxiety with suicidal thoughts secondary tohis undiagnosed Crohn's. Patientwas unable to attendfamily medicine follow-up appointment this week secondary to mother's influenza. Encouraged them in the future to call and switch to [facility] ifprovider is willing. Had patient schedule follow-up with ANGELA Lowery. 2.Acid reflux Patient reports that he continues to have acid reflux 6 out of 7 days a week despite omeprazole use. -Discussed with patientto take his omeprazole on an empty stomach first thing in the morning 30 minutes before breakfast. He had been taking this with food. -Added famotidine twice daily at this time -Will reevaluate at follow-up -Did encourage reduction and ultimatelycessation of marijuana use. -All scripts were sent with patient to [facility] pharmacy. GI follow up in2 months, sooner if needed. I have spent 50 minutes in evaluation, education and documentation of this pt in both face to face and non-face to face activities. Problem List/Past Medical History Ongoing Crohn's disease Procedure/Surgical History Colonoscopy (08/13/2023)EGD - esophagogastroduodenoscopy (08/13/2023) Medications famotidine(famotidine 20 mg oral tablet), 20 mg= 1 tab, PO, bid, 11 refills mesalamine(Pentasa 500 mg oral capsule, extended release), 1000 mg= 2 cap, PO, tid, 3 refills mirtazapine(mirtazapine 30 mg oral tablet), 30 mg= 1 tab, PO, qhs omeprazole(omeprazole 20 mg oral delayed release capsule), 20 mg= 1 cap, PO, Daily, 11 refills Allergies NKA Social History Smoking Status Never smoked cigarettes Alcohol - Denies Alcohol Use Employment/School Status:Employed 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 [employer] - Comments: does not exercise regularly Home/Environment Lives with:3 roommates Alcohol abuse in household:No Substance abuse in household:Yes Smoker in household:No Feels unsafe at home:Yes Nutrition/Health Type of diet:Regular Sexual Sexually active:No Substance Abuse Type:Marijuana - Comments: smokes marijuana daily to every other day Tobacco - Denies Tobacco Use Family History Patient was adopted Recommendations Health Maintenance Pending(in the next year) OverDue Adult Influenza Vaccine due12/22/22and every 1year Due Adult COVID-19 Vaccination due08/23/23Unknown Frequency Adult Social Determinants of Health Screening due08/23/23Unknown Frequency Adult Tdap/Td Vaccine due08/23/23Unknown Frequency Hepatitis C Screening due08/23/23One-time only Lipid Screening due08/23/23Unknown Frequency Satisfied(in the past 1 year) Satisfied Body Mass Index on07/24/23.Satisfied by BIBIANA Cole Heather Electronic Signature on File CC: BAILEY Lowery [address] [place] [id number] Electronically Reviewed/Signed by: Doris Cordero PA-C Author Signature Dt/Tm:08/23/2023 12:39 PM Division of Gastroenterology Electronically Reviewed/Signed by: Conrado Braga MD Cosigner Signature Dt/Tm: 08/23/2023 02:41 PM Division of Gastroenterology [facility] Patient Care team information Care Team Personnel Name: BAILEY Avalos Tara Position: Nurse Pract - Family Med Member Role: Primary Care Provider Address: Address: [address] [place] [address]
--- OUTSIDE RECORDS SUMMARY | 2024-01-02 08:55 | External Medical Summary | Continuity of Care Document ---
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 Name Role Phone Kelsy Avalos Primary Care Physician [phone] Encounter [facility] [id number] Date(s): 07/25/23 - 07/25/23 [facility] [address] [address] [phone] Encounter Diagnosis Right upper quadrant pain(Final) - Discharge Disposition: Home or Self Care Attending Physician: BAILEY Avalos Tara Referring Physician: BAILEY Avalos Tara Allergies, Adverse Reactions, Alerts No Known Allergies Medications mirtazapine 30 mg oral tablet Start: 07/24/23 14:58:00 EST, 1 tab, PO, qhs Start Date: 07/24/23 Status: Ordered omeprazole 20 mg oral delayed release capsule Start: 07/24/23 15:34:00 EST, 1 cap, PO, Daily, Disp# 30 cap, Refills: 1, Pharmacy: [id number] Start Date: 07/24/23 Stop Date: 09/22/23 Status: Ordered Social History Social History Type Response Smoking Status Never smoked cigaret jose c Sex Male Patient Care team information Care Team Personnel Name: BAILEY Avalos Tara Position: Nurse Pract - Family Med Member Role: Primary Care Provider Address: Address: [address] [place] [id number] [place]
--- OUTSIDE RECORDS SUMMARY | 2024-01-02 08:55 | External Medical Summary | Continuity of Care Document ---
Author Name Unknown Organization [address] Address [address] [place], [place] [id number] Care Team Providers Care Dog Catcher Name Role Phone Kelsy Avalos Primary Care Physician [phone] [id number] Date(s): 10/01/23 - 10/01/23 [place] [address] [address] [address] [phone] Encounter Diagnosis Crohn's disease(Discharge Diagnosis) - 10/01/23 Depression(Discharge Diagnosis) - 10/01/23 Discharge Disposition: Home or Self Care Attending Physician: BAILEY Avalos Tara Referring Physician: BAILEY Avalos Tara Allergies, Adverse Reactions, Alerts No Known Allergies Assessment and Plan Extracted from: Title:follow up Author:BAILEY Avalos Tara Date:10/01/23 1.Crohn's disease Acute/Chronic: chronic Goal:Resolution/ control Status:stable/controlled Data: records/pt report Plan:Discussed that meds can take time for symptoms to improve. Unclear if he is to be on mesalamine and budesonide. Message sent to GI. Instructed to restart GI meds and follow up at the end of the month as scheduled. 2.Depression Acute/Chronic: chronic Goal:Resolution/ control Status:stable/controlled Data: records/pt report Plan: Doing better. Is not on meds. He does not feel he needs med for depression. Will hold time spent reviewing chart, face to face visit, ordersand documentation: 32 min Medications budesonide 3 mg oral delayed release capsule Start: 09/10/23 17:33:00 EDT, 3 cap, PO, qAM, Disp# 168 cap, Refills: 0, Pharmacy: [facility] #[id number] Start Date: 09/10/23 Stop Date: 11/05/23 Status: Ordered famotidine 20 mg oral tablet Start: 08/23/23 11:52:00 EST, 1 tab, PO, bid, Disp# 60 tab, Refills: 11 Start Date: 08/23/23 Stop Date: 08/17/24 Status: Ordered mesalamine 1.2 g oral delayed release tablet Start: 08/30/23 14:49:00 EST, 1 tab, PO, tid, Disp# 90 tab, Refills: 11, Pharmacy: [facility] #[id number] Start Date: 08/30/23 Stop Date: 08/24/24 Status: Ordered omeprazole 20 mg oral delayed release capsule Start: 08/23/23 11:47:00 EST, 1 cap, PO, Daily, Disp# 30 cap, Refills: 11 Start Date: 08/23/23 Stop Date: 08/17/24 Status: Ordered Mental Status 10/01/23 Barriers to Learning one year None evide nt Mandatory Health Literacy Documentation Yes Health Literacy Communication Barriers N ever Primary Language Croatian Problem List Condition Confirmation Course Effective Dates Status Health St atus Informant Crohn's disease Confirmed Active Diagnosis Diagnosis Type Effective Dates Health Status Cl inical Service Informant Crohn's disease Discharge Diagnosis 10/01/23 Depression Discharge Diagnosis 10/01/23 Procedures Procedure Date Related Diagnosis Body Site [...] Most recent to oldest [Reference Range]: 1 Height 174.8 cm (10/01/23 2:58 PM) Patient Weight 61.5 kg (10/01/23 2:58 PM) Body Mass Index 20.13 kg/m2 (10/01/23 2:58 PM) Heart Rate 97 bpm (10/01/23 2:58 PM) Respiratory Rate 16 br/min (10/01/23 2:58 PM) Blood Pressure 102/70mmHg (10/01/23 2:58 PM) Cuff Pulse Pressure 32 mmHg (10/01/23 2:58 PM) Social History Social History Type Response Smoking Status Never smoked cigaret jose c Sex Male [facility] Outpt Note * BAILEY Avalos Tara: PERFORM Event Display: [facility] Outpt Note Authored Date: [id number] Chief Complaint 1 month f/u. didn't feel the medicine ordered for GI or depression were effective. No longer taking any meds. feels his depression is fine and GI issues are unchanged History of Present Illness Pt recently found to have Crohn's and was started on meds. However he states that he contd to have intermittent abd pain so he stopped them. He denies blood in stools. He also is not taking meds for depression. He states he is feeling good. No SI/HI. Review of Systems Constitutional: No fever, chills, sweats EENT:No vision change, eye pain, rhinorrhea, sinus pain, epistaxis, dysphagia, change in hearing,tinnitus, vertigo, oral ulcers or lesions. Pulmonary: No shortness of breath, dyspnea with exertion, cough, hemoptysis, wheezing, chest pain. Cardiovascular: No chest pain, palpitations, syncope, edema, cyanosis, claudication, orthopnea. GI: see HPI Physical Exam Vitals & Measurements HR:97(Monitored) RR:16 BP:102/70 SpO2:98% HT:174.8cm WT:61.500kg(Dosing) WT:61.5kg BMI:20.13 PHQ2 Data(Data Documented on:10/01/2023 14:58) Emotional health assessment NEGATIVE head- normocephalic Pulmonary- chest expansion symmetric, CTA (clear to auscultation), eupnea, no adventitious sounds (rales, crackles, wheezes) CV (cardiovascular)- RRR no m/r/g (systolic ejection murmur, rubs, gallops), good peripheral perfusion abdomen- soft non-tender w/o masses, BS present, no hepatosplenomegaly, no bruits extremitiesNo edema or erythema. Neuro:Alert, Oriented, Psy:no homicidal or suicidal ideations. Assessment/Plan 1.Crohn's disease Acute/Chronic: chronic Goal:Resolution/ control Status:stable/controlled Data: records/pt report Plan:Discussed that meds can take time for symptoms to improve. Unclear if he is to be on mesalamine and budesonide. Message sent to GI. Instructed to restart GI meds and follow up at the end of the month as scheduled. 2.Depression Acute/Chronic: chronic Goal:Resolution/ control Status:stable/controlled Data: records/pt report Plan:Doing better. Is not on meds. He does not feel he needs med for depression. Will hold time spent reviewing chart, face to face visit, ordersand documentation: 32 min Problem List/Past Medical History Ongoing Crohn's disease Procedure/Surgical History Colonoscopy| Service Date: 08/13/2023EGD - esophagogastroduodenoscopy| Service Date: 08/13/2023 Medications budesonide(budesonide 3 mg oral delayed release capsule), 9 mg= 3 cap, PO, qAM famotidine(famotidine 20 mg oral tablet), 20 mg= 1 tab, PO, bid, 11 refills mesalamine(mesalamine 1.2 g oral delayed release tablet), 1.2 g= 1 tab, PO, tid, 11 refills omeprazole(omeprazole 20 mg oral delayed release capsule), 20 mg= 1 cap, PO, Daily, 11 refills Allergies NKA Social History Smoking Status Never smoked cigarettes Alcohol - Denies Alcohol Use Employment/School Status:Employed 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 [employer] - Comments: does not exercise regularly Home/Environment [...] due12/22/22and every 1year Due Adult COVID-19 Vaccination due10/01/23Unknown Frequency Adult Social Determinants of Health Screening due10/01/23Unknown Frequency Adult Tdap/Td Vaccine due10/01/23Unknown Frequency Hepatitis C Screening due10/01/23One-time only Lipid Screening due10/01/23Unknown Frequency Satisfied(in the past 1 year) Satisfied Body Mass Index on10/01/23.Satisfied by BIBIANA Maciel Bobbi Electronic Signature on File Electronically Reviewed/Signed by: BAILEY Lowery Author Signature Dt/Tm:10/01/2023 04:52 PM Department of Family Medicine TB Patient Care team information Care Team Personnel Name: BAILEY Avalos Tara Position: Nurse Pract - Family Med Member Role: Primary Care Provider Address: Address: [address] [place] [address] [place]"
--- OUTSIDE RECORDS SUMMARY | 2024-01-02 08:55 | External Medical Summary | Continuity of Care Document ---
Author Name Unknown Organization [place] [address] [facility] Address [address] [place], [place] [id number] Care Team Providers Care Floodplain Manager Name Role Phone Kelsy Avalos Primary Care Physician [phone] Encounter [facility] [id number] Date(s): 12/10/23 - 12/10/23 [place] [address] [address] A [facility] [address] [address] [phone] Encounter Diagnosis Crohn's disease(Discharge Diagnosis) - 12/10/23 Body mass index [BMI] 20.0-20.9, adult(Discharge Diagnosis) - 12/10/23 Discharge Disposition: Home or Self Care Attending Physician: KUNAL Cordero Kelli Jo Allergies, Adverse Reactions, Alerts No Known Allergies Assessment and Plan Extracted from: Title:Office Visit Note Author:KUNAL Cordero Kell i Jo Date:12/10/23 1.Crohn's disease Patient is a pleasant 82-hmnt-kijuxgo who presents for follow-upof Crohn's disease. DiagnosedFebruary 2023. -Continue mesalamine. -Fecal calprotectin in 2 weeks.I did discuss with patient that should number be elevated;we will repeat again in 6 to 8 weeks prior to deciding to escalate careas he has been off his medications currently. -Patient had not completed his prior ordered blood work as of today's appointment. New blood work was ordered to include CBC, CMP,inflammatory markers, B12, magnesium, and vitamin D. - 08/13/2023 colonoscopy demonstratingCrohn's diseasefrom the splenic flexure to the ascending colon. Ileum was not intubated inflammation was noted at the ileocecal valve. 2.Acid reflux -Continue lifestyle modifications -No change to omeprazole regimen at this time -Will reevaluate at follow-up GI follow up in3 months, sooner if needed. I have spent 32 minutes in evaluation, education and documentation of this pt in both face to face and non-face to face activities. Medications budesonide 3 mg oral delayed release capsule Start: 09/10/23 5:33:00 PM EDT, 3 cap, PO, qAM, Disp# 168 cap, Refills: 0, Pharmacy: [facility] #[id number] Start Date: 09/10/23 Stop Date: 11/05/23 Status: Ordered buPROPion 100 mg/12 hours (SR) oral tablet, extended release TAKE 1 TABLET BY MOUTH EVERY MORNING Start Date: 12/10/23 Status: Ordered famotidine 20 mg oral tablet Start: 08/23/23 11:52:00 AM EST, 1 tab, PO, bid, Disp# 60 tab, Refills: 11 Start Date: 08/23/23 Stop Date: 08/17/24 Status: Ordered mesalamine 1.2 g oral delayed release tablet Start: 12/10/23 9:06:00 AM EDT, 1 tab, PO, tid, Disp# 270 tab, Refills: 1, Pharmacy: [facility]/pharmacy #[id number] Start Date: 12/10/23 Stop Date: 06/07/24 Status: Ordered mirtazapine 30 mg oral tablet TAKE 1 TABLET BY MOUTH AT BEDTIME Start Date: 12/10/23 Status: Ordered omeprazole 20 mg oral delayed release capsule Start: 08/23/23 11:47:00 AM EST, 1 cap, PO, Daily, Disp# 30 cap, Refills: 11 Start Date: 08/23/23 Stop Date: 08/17/24 Status: Ordered Mental Status 12/10/23 Barriers to Learning one year None evide nt Mandatory Health Literacy Documentation Yes Health Literacy Communication Barriers N ever Primary Language Kazakh Problem List Condition Confirmation Course Effective Dates Status Health St atus Informant Crohn's disease Confirmed Active Diagnosis Diagnosis Type Effective Dates Health Status Cl inical Service Informant Body mass index [BMI] 20.0-20.9, adult Discharge Diagnosis 12/10/23 Non-Specified Crohn's disease Discharge Diagnosis 12/10/23 Non-Specified Procedures Procedure Date Related Diagnosis Body Site [...] oldest [Reference Range]: 1 Height 174.8 cm (12/10/23 8:39 AM) Patient Weight 62.5 kg (12/10/23 8:39 AM) Body Mass Index 20.45 kg/m2 (12/10/23 8:39 AM) Blood Pressure 94/62mmHg (12/10/23 8:39 AM) Cuff Pulse Pressure 32 mmHg (12/10/23 8:39 AM) BP Location # 1 Left Arm (12/10/23 8:39 AM) Social History Social History Type Response Smoking Status Never smoked cigaret jose c Sex Male Gastro[facility]ology Outpatient Note * KUNAL Cordero, Doris Sorenson: PERFORM Event Display: Gastroenterology Outpt Note Authored Date: [id number] Chief Complaint Pt here for f/u for Crohn's disease. Pt ran out of Pentasa about week ago. History of Present Illness The patient is a pleasant 3-ltqm-[id number] presents today for new patient evaluation of Crohn's disease.[facility] history[facility]. Prior records: 07/24/2023OV ([facility]):Pt is here to establish. He was recently [...] denies nausea and vomiting. No blood in stoolsor dark tarry stools. He denies that certain foods aggravate his abd pain. He denies etoh use or tobacco use. He does use marijuana several times a week once a day.He denies any other medical issues. He was diagnosed during hospital stay with Depressive disorder and was started on mirtazapine. He states he feel it is helping. Has only been on it for approx 3 weeks. He denies SI or HI. He states that he has not been sleeping well due to his GI symptoms. 07/25/2023labs:Fecal calprotectin >3000 08/13/2023olonoscopy:- Redundant colon. - Inflammation [...] granulomas with focal erosion and granulation tissue. 08/13/2023EGD:- Z-line regular. - Normal esophagus. - Normal antrum.- Normal second portion of the duodenum.- The examination was otherwise normal. Pathology:A) Duodenum, biopsy: No significant pathology. B) Gastric antrum, biopsy: Minimal chronic inflammation and foveolar hyperplasia. COMMENT: Histologic features of Helicobacter pylori gastritis not identified 08/23/2023OV ([facility]):Patient presents today as a new patient to the GI officewith a new diagnosis of Crohn's disease. He is present with his mother. Patient states that around somewhere fromly to began to have abdominal pain with eatingand occasionally with drinking water. This pain ultimately became more frequent. He reports that he has the pain more in the right lowerquadrant but also it is in the left lower quadrant. Prior to the symptoms he would have a Bristoltype IV bowel movement dailybut more presently at the Melrose type V bowel movement 2-3 times a [...] follow any specialized diets at this time. 10/01/2023OV ([facility]):Pt recently found to have Crohn's and was started on meds. However he states that he contd to have intermittent abd pain so he stopped them. He denies blood in stools. 12/10/2023OV ([facility]):Patient returns today for follow-up of Crohn's disease. In September patient had discontinued use of his Pentasa secondary toongoing abdominal pain. He states that since that time he has restarted itand for the most part his symptoms are much improved.He states on occ asion he will have a flare of discomfort once or twice a daybut overall much improved. Unfortunately he did not knowthat his pharmacy was out of mesalamine and thought that his prescription wasout and thus he has been off of his medications now for 5 days. He states that his omeprazole also helpshis acid reflux symptoms that were addressed at last visit. He denies blood, mucusor melenain his stools. He has aBristol type V/VIbowel movement once or twice daily. He denies nausea, vomitingor dysphagia. Abdominal surgical history: N/A IBD History - Diagnosis:08/13/2023 - Previous treatments:None - Current treatment:None - IBD surgeries: None - Extraintestinal manifestations (joint, eye, mouth ulcers, skin lesions): Denies - Upper GI or Perianal involvement: None - FHx of IBD or CRC:None - Smoking history:Vapes marijuana Social History: Tobacco: denies ETOH:Denies Recreational Drug use including Marijuana: Daily marijuana vapinghelps abdominal pain Works at [employer] part-time Family:Lives in his own apartment, no children, 0 pets Family History: Deniesfamilyhistory of colorectal cancer, liver disease, IBD, IBS, pancreatic disease, celiac disease No further complaints or concerns today. Physical Exam Vitals & Measurements BP:94/62 HT:174.8cm WT:62.5kg WT:62.500kg(Dosing) BMI:20.45 General:Alert and oriented, No acute distress, appears stated age HENT:Normocephalic, normal hearing Respiratory: Respiration are non-labored, pt speaking in complete sentences,and no evidence of respiratory distress is noted Integumentary:Exposed skin viewable is dry and intact Psychiatric:Cooperative, appropriate mood & affect, Normal judgement Assessment/Plan 1.Crohn's disease Patient is a pleasant 29-dihr-fgazrvr who presents for follow-upof Crohn's disease. DiagnosedFebruary 2023. -Continue mesalamine. -Fecal calprotectin in 2 weeks.I did discuss with patient that should number be elevated;we will repeat again in 6 to 8 weeks prior to deciding to escalate careas he has been off his medications currently. -Patient had not completed his prior ordered blood work as of today's appointment. New blood workwas ordered to include CBC, CMP,inflammatory markers, B12, magnesium, and vitamin D. - 08/13/2023 colonoscopy demonstratingCrohn's diseasefrom the splenic flexure to the ascending colon. Ileum was not intubated inflammation was noted at the ileocecal valve. 2.Acid reflux -Continue lifestyle modifications -No change to omeprazole regimen at this time -Will reevaluate at follow-up GI follow up in3 months, sooner if needed. I have spent 32 minutes in evaluation, education and documentation of this pt in both face to face and non-face to face activities. Problem List/Past Medical History Ongoing Crohn's disease Procedure/Surgical History Colonoscopy| Service Date: 08/13/2023EGD - esophagogastroduodenoscopy| Service Date: 08/13/2023 Medications budesonide(budesonide 3 mg oral delayed release capsule), 9 mg= 3 cap, PO, qAM buPROPion(buPROPion 100 mg/12 hours (SR) oral tablet, extended release) famotidine(famotidine 20 mg oral tablet), 20 mg= 1 tab, PO, bid, 11 refills mesalamine(mesalamine 1.2 g oral delayed release tablet), 1.2 g= 1 tab, PO, tid, 1 refills mirtazapine(mirtazapine 30 mg oral tablet) omeprazole(omeprazole 20 mg oral delayed release capsule), 20 mg= 1 cap, PO, Daily, 11 refills Allergies NKA Social History Smoking Status Never smoked cigarettes Alcohol - Denies Alcohol Use Employment/School Status: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 [employer] - Comments: does not exercise regularly Home/Environment Lives with:3 roommates Alcohol abuse in household:No Substance abuse in household:Yes Smoker in household:No Feels unsafe at home:Yes Nutrition/Health Type of diet:Regular Sexual Sexually active:No Substance Abuse Type:Marijuana - Comments: smokes marijuana daily to every other day Tobacco - Denies Tobacco Use Family History Patient was adopted Family history is unknown Recommendations Health Maintenance Pending(in the next year) OverDue Adult Influenza Vaccine due12/22/22and every 1year Due Adult COVID-19 Vaccination due12/10/23Unknown Frequency Adult Social Determinants of Health Screening due12/10/23Unknown Frequency Adult Tdap/Td Vaccine due12/10/23Unknown Frequency Hepatitis C Screening due12/10/23One-time only Lipid Screening due12/10/23Unknown Frequency Satisfied(in the past 1 year) Satisfied Body Mass Index on12/10/23.Satisfied by BIBIANA Hamilton Erin Electronic Signature on File CC: Kelsy Baney, COMBINER [address] [place] [address] Electronically Reviewed/Signed by: Doris Cordero PA-C Author Signature Dt/Tm:12/10/2023 09:19 AM Division of Gastroenterology Electronically Reviewed/Signed by: Conrado Braga MD Cosigner Signature Dt/Tm: 12/10/2023 09:50 AM Division of Gastroenterology [facility] Patient Care team information Care Team Personnel Name: BAILEY Avalos Tara Position: Nurse Pract - Family Med Member Role: Primary Care Provider Address: Address: [address] [place] [address], [place] [address]"
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
[2024-01-02 10:28] LABS: Appearance Urine Clear (Clear); Bilirubin Urine Negative (Negative); Blood Urine Negative (Negative); Color Urine Dark Yellow; Glucose Urine UA Negative (Negative); Ketones Urine 2+ (Negative); Leukocyte Esterase Urine Negative (Negative); Nitrite Urine Negative (Negative); Protein Urine Negative (Negative); Specific Gravity Urine 1.025 (1.000-1.030); Urobilinogen Urine Negative (Negative); pH Urine 5.5 (4.5-7.5)
[2024-01-02] MEDS: PANTOprazole 40 MG TAB PO SCH (11:15)
[2024-01-02 11:16] LABS: Amphetamines+Metham, Urine Neg (Neg); Barbiturates, Urine Neg (Neg); Benzodiazepine, Urine Neg (Neg); Cocaine, Urine Neg (Neg); Fentanyl, Urine Neg (Neg); MDMA (Ecstacy), Urine Neg (Neg); Marijuana, Urine Pos (Neg); Methadone, Urine Neg (Neg); Opiate, Urine Neg (Neg); Phencyclidine, Urine Neg (Neg)
[2024-01-02] MEDS: FAMOTIDINE 20 MG TAB PO SCH (11:16)
[2024-01-02] MEDS: BUDESONIDE EC 3 MG CAP PO SCH (11:16)
[2024-01-02] MEDS: MESALAMINE 1.2 GM TABDR PO SCH (13:35)
[2024-01-02] MEDS: cloNIDine HCL 0.1 MG TAB PO SCH (21:02)
[2024-01-02] MEDS: MIRTAZAPINE TAB 15 MG TAB PO SCH (21:02)
--- NOTE | 2024-01-03 09:03 | Psychiatric Progress Note ---
Date of Service January 03, 2024 Impression / Recommendations Impression Odell is a 23-year-old man with a history of persistent depressive disorder, and was admitted on 01/01/24 17:26 on a 201 voluntary commitment for SI with possible plans and feeling unable to remain safe. Diagnostically consistent with unspecified depressive disorder. Seems that many of his symptoms are likely due to a combination of major depression, PTSD, and YOLY. Suspect he may also have OCD and ADHD. A: Ongoing depression, reviewed Y-BOCS results are consistent with diagnosis of OCD. History and ADHD self-report consistent with ADHD. Tolerating clonidine, will decrease mirtazapine given concern for excessive daytime fatigue. Discussed medication treatment options in detail. Discussed risks, benefits and alternatives. Patient would like to start and consented to Adderall XR for ADHD and sertraline for depression, PTSD, OCD. Reviewed side effects including but not limited to: GI, ALEJO, sexual side effects, and counseled on black box warning of potential for emergence of or increased SI and need to let staff know should this occur or should they feel unsafe. Also discussed importance of seeking emergency care following discharge if this side effect occurs in the future. Also reviewed misuse potential, cardiac, insomnia, decreased appetite and potential for worsening of OCD/PTSD/anxiety with stimulant trial. Overall, I spent a total of 35 minutes on this case including meeting with the patient, reviewing the chart, nursing report, multidisciplinary team meeting, orders, and documentation. (1) Depression with suicidal ideation: (2) MDD (major depressive disorder), recurrent episode, severe: (3) Anxiety with obsessional features: (4) Post traumatic stress disorder (PTSD): (5) Crohn's disease: (6) Depression: (7) Obsessive compulsive disorder: (8) ADHD (attention deficit hyperactivity disorder): Plan 01/03/2024: -Start Adderall IR test dose this afternoon of 5mg, Adderall XR 10mg starting tomorrow morning -Start sertraline 25mng qd -Decrease mirtazapine to 15mg HS -Continue clonidine 0.1mg HS 01/02/2024: The patient was admitted to the [facility] ([facility]) on q15 min checks (behavioral with suicide precautions) for safety. The patient will participate in group, recreational, and milieu therapies and will be offered additional individual and family sessions as clinically appropriate. -Start clonidine 0.1mg HS -Hold off on Wellbutrin for now -Continue with mirtazapine 30mg HS -Likely will consider SSRI vs Strattera vs stimulant trial based on Y-BOCS and ADHD self-report -Y-BOCS -ADHD self-report checklist Inventory Assets Strengths: supportive relationships, willing to get treatment Needs: safety and stabilization, medication adjustment, additional coping skills, increased outpatient services Suicide Risk Level Suicide Risk Level: Moderate (q15 min suicide checks) (depression with SI, anxiety and PTSD but feels safe in the hospital, feels able to let staff know if he feels unsafe ) Suicide Risk Level Comments: Risk Factors Assessment Male: Yes : No Do You Have Access To A Gun?: No Health Problems: Yes Mental Health Diagnoses: Yes Substance Use Disorders: No Previous Attempt: No Family History of Suicide: Yes (attempts) Previous Psychiatric Hospitalization: No Protective Factors Assessment Employed: Yes ([employer]) Stable Relationships: Yes Supportive Family: Yes Interval History Identifying Information ODELL VILLAR is a 23-year-old M who currently lives in [place] with roommates including his brother, has a history of persistent depressive disorder, and was admitted on 01/01/24 17:26 on a 201 voluntary commitment for SI with possible plans and feeling unable to remain safe. Chief Complaint "I don't really want to do much". Review of Systems Sleep Information Total Hours of Sleep: 8.15 Meal Information Percent Meal Consumed - Breakfast: 50 Percent Meal Consumed - Dinner: 0 Subjective Subjective Patient was seen & assessed and interval progress reviewed with treatment team nursing and social work. Very isolative yesterday. Declined all groups. Today spent most of the morning until mid-day in bed. Reports low energy, low motivation, depressed mood. Reviewed ADHD self-report and Y-BOCS. Feels he slept well with clonidine and mirtazapine but somewhat overly sedated this morning. He feels this may have been happening for some time with mirtazapine. He prefers not to discontinue it as it helps him fall asleep but is agreeable to dose reduction for tonight. Reviewed significant burden of obsessive thoughts and compulsions which he rates as severe and consuming significant amounts of time. Physical Exam Psychiatric Orientation: alert and oriented x 3 Apperance: appropriately dressed and appropriately groomed Eye Contact: + poor eye contact Motor Behavior: no abnormal motor movements Speech: normal rate/rhythm/volume of speech (soft) Affect: + depressed affect and + constricted affect Mood: + depressed mood and + anxious mood Thought Process: goal directed thought process and + concrete thought process Thought Content: reality based without delusions Suicidal Thoughts: denies suicidal plan (none for hospital) and denies suicidal intent; + reports suicidal thoughts (intermittent, denies so far today ) Homicidal Thoughts: denies homicidal thoughts Hallucinations: no auditory hallucinations and no visual hallucinations Cognition: recent memory grossly intact, remote memory grossly intact and language grossly intact; + attention not intact (easily distracted) Estimated Intelligence: consistent with education level Insight: + limited insight Judgment: + limited judgement Vital Signs (Past 24 Hours) Last Vital Signs Temp 36.7 C 01/03/24 06:41 Pulse 89 01/03/24 06:42 Resp 16 01/03/24 06:41 BP 114/79 01/03/24 06:42 Pulse Ox 97 01/01/24 19:04 O2 Del Method Room Air 01/01/24 19:04 Results & Data ([facility]) Laboratory Results Laboratory Results - last 24 hr 01/02/24 Unknown Urine Color Dark Yellow Urine Appearance Clear Urine pH 5.5 Ur Specific [place] 1.025 Urine Protein Negative Urine Glucose (UA) Negative Urine Ketones 2+ H Urine Blood Negative Urine Nitrite Negative Urine Bilirubin Negative Urine Urobilinogen Negative Ur Leukocyte Esterase Negative Urine Opiates Screen Neg Ur Methadone, Qual Neg Urine Fentanyl Screen Neg Urine Barbiturates Neg Ur Phencyclidine (PCP) Neg U Amphetamin/Meth Scrn Neg MDMA (Ecstasy) Screen Neg U Benzodiazepines Scrn Neg Ur Cocaine Metabolite Neg U Marijuana (THC) Screen Pos H U Marijuana THC Carboxy Pending Drug Screen Comment Pending Current Inpatient Medications Current Inpatient Medications: Current Inpatient Medications Acetaminophen (Acetaminophen 325 Mg Tab) 650 mg PO Q4H PRN PRN Reason: Headache or Minor Fever Stop: 01/31/24 17:29 Al Hydrox/Mg Hydrox/Simethicone (Aluminum/Magnesium Susp 30 Ml Udc) 30 ml PO Q4H PRN PRN Reason: GI Upset Stop: 01/31/24 17:29 Bismuth Subsalicylate (Bismuth Subsalicylate Liqd 236 Ml) 15 ml PO PRN PRN PRN Reason: Loose Stool Stop: 01/31/24 17:29 Budesonide (Budesonide Ec 3 Mg Cap) 9 mg PO QAM [facility] Stop: 02/01/24 10:14 Last Admin: 01/03/24 08:47 Dose: 9 mg Clonidine HCl (Clonidine Hcl 0.1 Mg Tab) 0.1 mg PO HS [facility] Stop: 02/01/24 21:59 Last Admin: 01/02/24 21:02 Dose: 0.1 mg Famotidine (Famotidine 20 Mg Tab) 20 mg PO BID [facility] Stop: 02/01/24 10:29 Last Admin: 01/03/24 08:47 Dose: 20 mg Hydroxyzine HCl (Hydroxyzine Hcl 25 Mg Tab) 50 mg PO HSZ PRN PRN Reason: Insomnia Stop: 01/31/24 17:29 Hydroxyzine HCl (Hydroxyzine Hcl 25 Mg Tab) 25 mg PO Q4H PRN PRN Reason: Anxiety Stop: 01/31/24 17:29 Magnesium Hydroxide (Magnesium Hydroxide Susp 30 Ml Udc) 30 ml PO DAILY PRN PRN Reason: Constipation Stop: 01/31/24 17:29 Mesalamine (Mesalamine 1.2 Gm Tabdr) 1.2 gm PO TID [facility] Stop: 02/01/24 13:59 Last Admin: 01/03/24 08:48 Dose: 1.2 gm Mirtazapine (Mirtazapine Tab 15 Mg Tab) 30 mg PO HS [facility] Stop: 02/01/24 21:59 Last Admin: 01/02/24 21:02 Dose: 30 mg Pantoprazole Sodium (Pantoprazole 40 Mg Tab) 40 mg PO QAM [facility] Stop: 02/01/24 10:29 Last Admin: 01/03/24 08:47 Dose: 40 mg Sodium Chloride (Sodium Chloride 0.65% Na Soln 45 Ml ([place])) 1 - 2 sprays NA PRN PRN PRN Reason: Nasal Dryness/Congestion Stop: 01/31/24 17:29 (6) Depression Active/Remission status: currently active Depression Type: major depressive disorder Major depression episode severity: unspecified Major depression recurrence: recurrent Qualified Code(s): F33.9 - Major depressive disorder, recurrent, unspecified
[2024-01-03] MEDS: DEXTROAMPHETAMINE/AMPHETAMIME IR 5 MG TAB PO ONE (13:51)
[2024-01-03] MEDS: MIRTAZAPINE TAB 15 MG TAB PO SCH (21:34)
[2024-01-04] MEDS ORDERED: DEXTROAMPHETAMINE/AMPHETAMIME IR 5 MG TAB PO SCH (09:00)
[2024-01-04] MEDS: DEXTROAMPHETAMINE/AMPHETAMINE ER 10 MG CAP PO SCH (09:04)
[2024-01-04] MEDS: SERTRALINE HCL 50 MG TABLET PO SCH (09:05)
--- NOTE | 2024-01-04 09:07 | Psychiatric Progress Note ---
Date of Service January 04, 2024 Impression / Recommendations Aubrie Bain is a 23-year-old man with a history of persistent depressive disorder, and was admitted on 01/01/24 17:26 on a 201 voluntary commitment for SI with possible plans and feeling unable to remain safe. Diagnostically consistent with unspecified depressive disorder. Seems that many of his symptoms are likely due to a combination of major depression, PTSD, and YOLY. Suspect he may also have OCD and ADHD. A: Mood improving a little bit today, slightly more affect and speaking loudly and more expansive. Will discontinue scheduled mirtazapine and offer as prn for insomnia per his request. He would like to try a higher dose of Adderall to further target ADHD symptoms which seem to significantly impact his mood and functioning. Tolerating sertraline so far, ongoing psychoeducation about OCD. Overall, I spent a total of 40 minutes on this case including meeting with the patient, reviewing the chart, nursing report, multidisciplinary team meeting, orders, and documentation. (1) Obsessive compulsive disorder: (2) MDD (major depressive disorder), recurrent episode, severe: (3) ADHD (attention deficit hyperactivity disorder): (4) Trichotillomania: (5) Post traumatic stress disorder (PTSD): (6) Crohn's disease: Plan 01/04/2024: -Increase Adderall ER to 20mg qAM tomorrow -Discontinue mirtazapine 15mg HS change to prn for insomnia -Increase sertraline to 50mg qd -Continue clonidine 0.1mg HS 01/03/2024: -Start Adderall IR test dose this afternoon of 5mg, Adderall XR 10mg starting tomorrow morning -Start sertraline 25mg qd -Decrease mirtazapine to 15mg HS -Continue clonidine 0.1mg HS 01/02/2024: The patient was admitted to the [facility] on q15 min checks (behavioral with suicide precautions) for safety. The patient will participate in group, recreational, and milieu therapies and will be offered additional individual and family sessions as clinically appropriate. -Start clonidine 0.1mg HS -Hold off on Wellbutrin for now -Continue with mirtazapine 30mg HS -Likely will consider SSRI vs Strattera vs stimulant trial based on Y-BOCS and ADHD self-report -Y-BOCS -ADHD self-report checklist Inventory Assets Strengths: supportive relationships, willing to get treatment Needs: safety and stabilization, medication adjustment, additional coping skills, increased outpatient services Suicide Risk Level Suicide Risk Level: Moderate (q15 min suicide checks) (depression with SI prior to admission and with OCD and PTSD but now denies SI and feels safe in the hospital, feels able to let staff know if he feels unsafe ) Suicide Risk Level Comments: Risk Factors Assessment Male: Yes : No Do You Have Access To A Gun?: No Health Problems: Yes Mental Health Diagnoses: Yes Substance Use Disorders: No Previous Attempt: No Family History of Suicide: Yes (attempts) Previous Psychiatric Hospitalization: No Protective Factors Assessment Employed: Yes ([employer]) Stable Relationships: Yes Supportive Family: Yes Interval History Identifying Information KEKE VILLAR is a 23-year-old M who currently lives in [place] with roommates including his brother, has a history of persistent depressive disorder and trichotillomania, and was admitted on 01/01/24 17:26 on a 201 voluntary commitment for SI with possible plans and feeling unable to remain safe. Chief Complaint "Not bad". Review of Systems Sleep Information Total Hours of Sleep: 7.30 Sleep Comments: HS Clonidine and Remeron Meal Information Percent Meal Consumed - Breakfast: 75 Percent Meal Consumed - Lunch: 100 Percent Meal Consumed - Dinner: 80 Subjective Subjective Patient was seen & assessed and interval progress reviewed with treatment team nursing and social work. Out of his room for the afternoon yesterday, engaged in groups and participating. Feels his mood is a little better today. Speaks to the frustration of his constant thoughts noting "I have a very loud internal monologue from the minute I wake up until I go to sleep". Reflects on possibility this is in part due to OCD. He describes significant sensory sensitivities especially regarding food texture that he relates to OCD now that he is learning more about it as well as his trichotillomania. Feels less tired this morning and would like to discontinue mirtazapine and have available as a prn just for times when sleep is especially difficult as he is finding clonidine helpful. He's unsure if the stimulant is offering any benefit but denies any worsening of OCD or anxiety, he'd like to try a dose increase. Physical Exam Psychiatric Orientation: alert and oriented x 3 Apperance: appropriately dressed and appropriately groomed Eye Contact: + poor eye contact Motor Behavior: no abnormal motor movements Speech: normal rate/rhythm/volume of speech Affect: + constricted affect Mood: + depressed mood and + anxious mood Thought Process: goal directed thought process and + concrete thought process Thought Content: reality based without delusions Suicidal Thoughts: denies suicidal thoughts, denies suicidal plan and denies suicidal intent Homicidal Thoughts: denies homicidal thoughts Hallucinations: no auditory hallucinations and no visual hallucinations Cognition: recent memory grossly intact, remote memory grossly intact and language grossly intact; + attention not intact (easily distracted) Estimated Intelligence: consistent with education level Insight: + limited insight Judgment: + limited judgement Vital Signs (Past 24 Hours) Last Vital Signs Temp 36.7 C 01/04/24 06:53 Pulse 95 H 01/04/24 06:54 Resp 16 01/04/24 06:53 BP 112/67 01/04/24 06:54 Pulse Ox 97 01/01/24 19:04 O2 Del Method Room Air 01/01/24 19:04 Results & Data ([facility]) Current Inpatient Medications Current Inpatient Medications: Current Inpatient Medications Acetaminophen (Acetaminophen 325 Mg Tab) 650 mg PO Q4H PRN PRN Reason: Headache or Minor Fever Stop: 01/31/24 17:29 Al Hydrox/Mg Hydrox/Simethicone (Aluminum/Magnesium Susp 30 Ml Udc) 30 ml PO Q4H PRN PRN Reason: GI Upset Stop: 01/31/24 17:29 Amphetamine/Dextroamphetamine (Dextroamphetamine/Amphetamine Er 10 Mg Cap) 10 mg PO DAILY MARLI Stop: 01/18/24 08:59 Bismuth Subsalicylate (Bismuth Subsalicylate Liqd 236 Ml) 15 ml PO PRN PRN PRN Reason: Loose Stool Stop: 01/31/24 17:29 Budesonide (Budesonide Ec 3 Mg Cap) 9 mg PO QAM MARLI Stop: 02/01/24 10:14 Last Admin: 01/03/24 08:47 Dose: 9 mg Clonidine HCl (Clonidine Hcl 0.1 Mg Tab) 0.1 mg PO HS MARLI Stop: 02/01/24 21:59 Last Admin: 01/03/24 21:33 Dose: 0.1 mg Famotidine (Famotidine 20 Mg Tab) 20 mg PO BID MARLI Stop: 02/01/24 10:29 Last Admin: 01/03/24 21:34 Dose: 20 mg Hydroxyzine HCl (Hydroxyzine Hcl 25 Mg Tab) 50 mg PO HSZ PRN PRN Reason: Insomnia Stop: 01/31/24 17:29 Hydroxyzine HCl (Hydroxyzine Hcl 25 Mg Tab) 25 mg PO Q4H PRN PRN Reason: Anxiety Stop: 01/31/24 17:29 Magnesium Hydroxide (Magnesium Hydroxide Susp 30 Ml Udc) 30 ml PO DAILY PRN PRN Reason: Constipation Stop: 01/31/24 17:29 Mesalamine (Mesalamine 1.2 Gm Tabdr) 1.2 gm PO TID MARLI Stop: 02/01/24 13:59 Last Admin: 01/03/24 21:34 Dose: 1.2 gm Mirtazapine (Mirtazapine Tab 15 Mg Tab) 15 mg PO HS MARLI Stop: 02/02/24 21:59 Last Admin: 01/03/24 21:34 Dose: 15 mg Pantoprazole Sodium (Pantoprazole 40 Mg Tab) 40 mg PO QAM MARLI Stop: 02/01/24 10:29 Last Admin: 01/03/24 08:47 Dose: 40 mg Sertraline HCl (Sertraline Hcl 50 Mg Tablet) 25 mg PO QAM MARLI Stop: 02/03/24 08:59 Sodium Chloride (Sodium Chloride 0.65% Na Soln 45 Ml ([place])) 1 - 2 sprays NA PRN PRN PRN Reason: Nasal Dryness/Congestion Stop: 01/31/24 17:29 Mental Health & Subst Abuse Tx Psychiatrist Name of Psychiatrist: Aura De Los Santos Psychiatrist's Date Of Appointment With Psychiatric Provider: 01/08/24 Time of Appointment with Psychiatrist: 1:30 PM arrival Psychiatric Appointment Comment: [address] [facility], [facility] [address] Therapist Name of Therapist: Cesar Hinojosa Therapist's Phone Number: [phone] Date of Therapist Appointment: 01/15/2024 Time of Therapist Appointment: 1200 Therapy Appointment Comment: please bring insurance card to appt Post Discharge Appointments Primary Care Physician Name Of Family Doctor/PCP: [facility] - Heidy Cordero PA-C Primary Care Date of Future Appointment with PCP: 03/10/24 Time of Appointment with PCP: 1:20 PM Provider Appointment Comment: [address], [place] [address]
[2024-01-04] MEDS ORDERED: MIRTAZAPINE TAB 15 MG TAB PO PRN (16:03)
[2024-01-05] MEDS: DEXTROAMPHETAMINE/AMPHETAMINE ER 10 MG CAP PO SCH (08:50)
[2024-01-05] MEDS: SERTRALINE HCL 50 MG TABLET PO SCH (08:53)
[2024-01-05 10:27] LABS: Marijuana Quant, GCMS Urine 1359 ng/mL (<5)
--- NOTE | 2024-01-05 12:12 | Psychiatric Progress Note ---
Date of Service January 05, 2024 Impression / Recommendations Impression Odell is a 23-year-old man with a history of persistent depressive disorder, and was admitted on 01/01/24 17:26 on a 201 voluntary commitment for SI with possible plans and feeling unable to remain safe. Diagnostically consistent with unspecified depressive disorder. Seems that many of his symptoms are likely due to a combination of major depression, PTSD, and YOLY. Suspect he may also have OCD and ADHD. A: Patient hypertalkative and appears slightly restless. Reports improvement in mood. Tolerating sertraline well. Sleep improved with PRN mirtazapine. Will decrease Adderall and switch to IR dosing given concern for excess energy and sleep impairement. Overall, I spent a total of 40 minutes on this case including meeting with the patient, reviewing the chart, nursing report, multidisciplinary team meeting, orders, and documentation. (1) Obsessive compulsive disorder: (2) MDD (major depressive disorder), recurrent episode, severe: (3) ADHD (attention deficit hyperactivity disorder): (4) Trichotillomania: (5) Crohn's disease: Plan 01/05/2024: -Decrease Adderall to 5mg IR BID morning and afternoon -Continue sertraline to 50mg qd -Continue clonidine 0.1mg HS 01/04/2024: -Increase Adderall ER to 20mg qAM tomorrow -Discontinue mirtazapine 15mg HS change to prn for insomnia -Increase sertraline to 50mg qd -Continue clonidine 0.1mg HS 01/03/2024: -Start Adderall IR test dose this afternoon of 5mg, Adderall XR 10mg starting tomorrow morning -Start sertraline 25mg qd -Decrease mirtazapine to 15mg HS -Continue clonidine 0.1mg HS 01/02/2024: The patient was admitted to the [facility] ([facility] inpatient mental health unit) on q15 min checks (behavioral with suicide precautions) for safety. The patient will participate in group, recreational, and milieu therapies and will be offered additional individual and family sessions as clinically appropriate. -Start clonidine 0.1mg HS -Hold off on Wellbutrin for now -Continue with mirtazapine 30mg HS -Likely will consider SSRI vs Strattera vs stimulant trial based on Y-BOCS and ADHD self-report -Y-BOCS -ADHD self-report checklist Inventory Assets Strengths: supportive relationships, willing to get treatment Needs: safety and stabilization, medication adjustment, additional coping skills, increased outpatient services Suicide Risk Level Suicide Risk Level: Moderate (q15 min suicide checks) (depression with SI prior to admission and with OCD and PTSD but now denies SI and feels safe in the hospital, feels able to let staff know if he feels unsafe ) Suicide Risk Level Comments: Risk Factors Assessment Male: Yes : No Do You Have Access To A Gun?: No Health Problems: Yes Mental Health Diagnoses: Yes Substance Use Disorders: No Previous Attempt: No Family History of Suicide: Yes (attempts) Previous Psychiatric Hospitalization: No Protective Factors Assessment Employed: Yes ([employer]) Stable Relationships: Yes Supportive Family: Yes Interval History Identifying Information ODELL VILLAR is a 23-year-old M who currently lives in [place] with roommates including his brother, has a history of persistent depressive disorder and trichotillomania, and was admitted on 01/01/24 17:26 on a 201 voluntary commitment for SI with possible plans and feeling unable to remain safe. Chief Complaint "Racing thoughts." Review of Systems Sleep Information Total Hours of Sleep: 6 Sleep Comments: HS Clonidine and Remeron Meal Information Percent Meal Consumed - Breakfast: 90 Percent Meal Consumed - Lunch: 90 Percent Meal Consumed - Dinner: 100 Subjective Subjective Patient was seen & assessed and interval progress reviewed with nursing and social work Patient complains of racing thoughts of many different topics and at times becomes negative. Reports having "physical sensations" with an urge to pick hair, was hard to resist, and provided some relief. Reports smoking cannabis and it initially helped to "think less" however became less effective. Reports having a difficult childhood and lived in multiple households. [place] he was neglected and was not given an opportunity to express his emotions. As a child was very talkative and energetic. Had issues with bedwetting and was disciplined by his parents by making him sleep in the bathtub or closet. Reports having nightmares involving family arguments or people being angry and this happens once a week; reports waking up normally from these nightmares without sweats or distress. Reports having occasional flashbacks where his mind "blanks" and is slightly paralyzed; denies associated physical symptoms and says that he can go back to feeling normal weekly. Denies avoidant behaviors. Denies suicidal ideation. Reports mother has PTSD and anxiety. Has trouble sleeping through the night. Mirtazapine at night was helpful. Continues to find pleasure in hobbies and activities. Reports after taking a higher dose of Adderall he felt sleepy. Physical Exam Mental Examination Eye Contact: Avoids Eye Contact Motor Behavior: Restless Speech: Excessive Mood: Euthymic Affect: Constricted Thought Process: Circumstantial Thought Content: Intact Hallucinations: None Insight: Fair Judgement: Poor Vital Signs (Past 24 Hours) Last Vital Signs Temp 36.8 C 01/05/24 06:45 Pulse 99 H 01/05/24 06:46 Resp 16 01/05/24 06:45 BP 119/84 01/05/24 06:46 Pulse Ox 97 01/01/24 19:04 O2 Del Method Room Air 01/01/24 19:04 Results & Data ([facility]) Laboratory Results Laboratory Results - last 24 hr 01/02/24 Unknown U Marijuana THC Carboxy 1359 H Drug Screen Comment SEE NOTE Current Inpatient Medications Current Inpatient Medications: Current Inpatient Medications Acetaminophen (Acetaminophen 325 Mg Tab) 650 mg PO Q4H PRN PRN Reason: Headache or Minor Fever Stop: 01/31/24 17:29 Al Hydrox/Mg Hydrox/Simethicone (Aluminum/Magnesium Susp 30 Ml Udc) 30 ml PO Q4H PRN PRN Reason: GI Upset Stop: 01/31/24 17:29 Amphetamine/Dextroamphetamine (Dextroamphetamine/Amphetamine Er 10 Mg Cap) 20 mg PO DAILY MARLI Stop: 01/19/24 08:59 Last Admin: 01/05/24 08:50 Dose: 20 mg Bismuth Subsalicylate (Bismuth Subsalicylate Liqd 236 Ml) 15 ml PO PRN PRN PRN Reason: Loose Stool Stop: 01/31/24 17:29 Budesonide (Budesonide Ec 3 Mg Cap) 9 mg PO QAM MARLI Stop: 02/01/24 10:14 Last Admin: 01/05/24 08:52 Dose: 9 mg Clonidine HCl (Clonidine Hcl 0.1 Mg Tab) 0.1 mg PO HS MARLI Stop: 02/01/24 21:59 Last Admin: 01/04/24 21:52 Dose: 0.1 mg Famotidine (Famotidine 20 Mg Tab) 20 mg PO BID MARLI Stop: 02/01/24 10:29 Last Admin: 01/05/24 08:52 Dose: 20 mg Hydroxyzine HCl (Hydroxyzine Hcl 25 Mg Tab) 50 mg PO HSZ PRN PRN Reason: Insomnia Stop: 01/31/24 17:29 Hydroxyzine HCl (Hydroxyzine Hcl 25 Mg Tab) 25 mg PO Q4H PRN PRN Reason: Anxiety Stop: 01/31/24 17:29 Magnesium Hydroxide (Magnesium Hydroxide Susp 30 Ml Udc) 30 ml PO DAILY PRN PRN Reason: Constipation Stop: 01/31/24 17:29 Mesalamine (Mesalamine 1.2 Gm Tabdr) 1.2 gm PO TID MARLI Stop: 02/01/24 13:59 Last Admin: 01/05/24 08:51 Dose: 1.2 gm Mirtazapine (Mirtazapine Tab 15 Mg Tab) 15 mg PO HS PRN PRN Reason: insomnia Stop: 02/02/24 21:59 Pantoprazole Sodium (Pantoprazole 40 Mg Tab) 40 mg PO QAM MARLI Stop: 02/01/24 10:29 Last Admin: 01/05/24 08:53 Dose: 40 mg Sertraline HCl (Sertraline Hcl 50 Mg Tablet) 50 mg PO QAM MARLI Stop: 02/04/24 08:59 Last Admin: 01/05/24 08:53 Dose: 50 mg Sodium Chloride (Sodium Chloride 0.65% Na Soln 45 Ml ([place])) 1 - 2 sprays NA PRN PRN PRN Reason: Nasal Dryness/Congestion Stop: 01/31/24 17:29 Mental Health & Subst Abuse Tx Psychiatrist Name of Psychiatrist: Aura De Los Santos Psychiatrist's Date Of Appointment With Psychiatric Provider: 01/08/24 Time of Appointment with Psychiatrist: 1:30 PM arrival Psychiatric Appointment Comment: [address] [place] [address] Therapist Name of Therapist: Cesar Hinojosa Therapist's Phone Number: [phone] Date of Therapist Appointment: 01/15/2024 Time of Therapist Appointment: 1200 Therapy Appointment Comment: please bring insurance card to appt Post Discharge Appointments Primary Care Physician Name Of Family Doctor/PCP: [facility] - Heidy Cordero PA-C Primary Care Date of Future Appointment with PCP: 03/10/24 Time of Appointment with PCP: 1:20 PM Provider Appointment Comment: [address], [place] [address]
[2024-01-05] MEDS: ACETAMINOPHEN 325 MG TAB PO PRN (23:00)
[2024-01-06] MEDS: DEXTROAMPHETAMINE/AMPHETAMIME IR 5 MG TAB PO SCH (08:23)
--- NOTE | 2024-01-06 16:17 | Psychiatric Progress Note ---
Date of Service January 06, 2024 Impression / Recommendations Impression Odell is a 23-year-old man with a history of persistent depressive disorder, and was admitted on 01/01/24 17:26 on a 201 voluntary commitment for SI with possible plans and feeling unable to remain safe. Diagnostically consistent with unspecified depressive disorder. Seems that many of his symptoms are likely due to a combination of major depression, PTSD, and YOLY. Suspect he may also have OCD and ADHD. A: Patient is doing well. Tolerating decrease in Adderall to the IR formulation. Educated about ADHD treatments. Administered ADHD symptom checklist patient scored gomez positive on categories. Discussed OCD symptoms and patient primarily experiencing symptoms of trichotillomania and rituals involving blinking and staring. Overall, I spent a total of 40 minutes on this case including meeting with the patient, reviewing the chart, nursing report, administering scale and reviewing, orders, and documentation. (1) Obsessive compulsive disorder: (2) MDD (major depressive disorder), recurrent episode, severe: (3) ADHD (attention deficit hyperactivity disorder): (4) Trichotillomania: (5) Crohn's disease: Plan 01/06/2024: Continue current medications and treatment plan. 01/05/2024: -Decrease Adderall to 5mg IR BID morning and afternoon -Continue sertraline to 50mg qd -Continue clonidine 0.1mg HS 01/04/2024: -Increase Adderall ER to 20mg qAM tomorrow -Discontinue mirtazapine 15mg HS change to prn for insomnia -Increase sertraline to 50mg qd -Continue clonidine 0.1mg HS 01/03/2024: -Start Adderall IR test dose this afternoon of 5mg, Adderall XR 10mg starting tomorrow morning -Start sertraline 25mg qd -Decrease mirtazapine to 15mg HS -Continue clonidine 0.1mg HS 01/02/2024: The patient was admitted to the [facility] ([facility] inpatient mental health unit) on q15 min checks (behavioral with suicide precautions) for safety. The patient will participate in group, recreational, and milieu therapies and will be offered additional individual and family sessions as clinically appropriate. -Start clonidine 0.1mg HS -Hold off on Wellbutrin for now -Continue with mirtazapine 30mg HS -Likely will consider SSRI vs Strattera vs stimulant trial based on Y-BOCS and ADHD self-report -Y-BOCS -ADHD self-report checklist Inventory Assets Strengths: supportive relationships, willing to get treatment Needs: safety and stabilization, medication adjustment, additional coping skills, increased outpatient services Suicide Risk Level Suicide Risk Level: Moderate (q15 min suicide checks) (depression with SI prior to admission and with OCD and PTSD but now denies SI and feels safe in the hospital, feels able to let staff know if he feels unsafe ) Suicide Risk Level Comments: Risk Factors Assessment Male: Yes : No Do You Have Access To A Gun?: No Health Problems: Yes Mental Health Diagnoses: Yes Substance Use Disorders: No Previous Attempt: No Family History of Suicide: Yes (attempts) Previous Psychiatric Hospitalization: No Protective Factors Assessment Employed: Yes ([employer]) Stable Relationships: Yes Supportive Family: Yes Interval History Identifying Information ODELL VILLAR is a 23-year-old M who currently lives in [place] with roommates including his brother, has a history of persistent depressive disorder and trichotillomania, and was admitted on 01/01/24 17:26 on a 201 voluntary commitment for SI with possible plans and feeling unable to remain safe. Chief Complaint "Better at focusing". Review of Systems Sleep Information Total Hours of Sleep: 5.25 Sleep Comments: HS Clonidine and Remeron Meal Information Percent Meal Consumed - Breakfast: 50 Percent Meal Consumed - Lunch: 50 Percent Meal Consumed - Dinner: 90 Subjective Subjective Patient was seen & assessed and interval progress reviewed with nursing and social work Patient reports sleeping well. Feels rested. Denies having distressing nightmares. Since decrease in Adderall does not notice a difference and effect. Feels that thoughts are slowed down, better at focusing. Clonidine effective for sleep. Reports plans to engage in positive self-care that is not destructive and is future oriented. Physical Exam Mental Examination Appearance: Well Groomed Eye Contact: Avoids Eye Contact Motor Behavior: Unremarkable Speech: Normal Mood: Euthymic Affect: Constricted Thought Process: Circumstantial Thought Content: Intact Hallucinations: None Insight: Fair Judgement: Poor Vital Signs (Past 24 Hours) Last Vital Signs Temp 36.6 C 01/06/24 06:31 Pulse 77 01/06/24 06:31 Resp 18 01/06/24 06:31 BP 122/86 01/06/24 06:31 Pulse Ox 97 01/01/24 19:04 O2 Del Method Room Air 01/01/24 19:04 Results & Data ([facility]) Current Inpatient Medications Current Inpatient Medications: Current Inpatient Medications Acetaminophen (Acetaminophen 325 Mg Tab) 650 mg PO Q4H PRN PRN Reason: Headache or Minor Fever Stop: 01/31/24 17:29 Last Admin: 01/05/24 23:00 Dose: 650 mg Al Hydrox/Mg Hydrox/Simethicone (Aluminum/Magnesium Susp 30 Ml Udc) 30 ml PO Q4H PRN PRN Reason: GI Upset Stop: 01/31/24 17:29 Amphetamine/Dextroamphetamine (Dextroamphetamine/Amphetamime Ir 5 Mg Tab) 5 mg PO BID@0800,1400 [facility] Stop: 01/20/24 07:59 Last Admin: 01/06/24 15:00 Dose: 5 mg Bismuth Subsalicylate (Bismuth Subsalicylate Liqd 236 Ml) 15 ml PO PRN PRN PRN Reason: Loose Stool Stop: 01/31/24 17:29 Budesonide (Budesonide Ec 3 Mg Cap) 9 mg PO QAM [facility] Stop: 02/01/24 10:14 Last Admin: 01/06/24 08:22 Dose: 9 mg Clonidine HCl (Clonidine Hcl 0.1 Mg Tab) 0.1 mg PO HS MARLI Stop: 02/01/24 21:59 Last Admin: 01/05/24 21:36 Dose: 0.1 mg Famotidine (Famotidine 20 Mg Tab) 20 mg PO BID [facility] Stop: 02/01/24 10:29 Last Admin: 01/06/24 08:22 Dose: 20 mg Hydroxyzine HCl (Hydroxyzine Hcl 25 Mg Tab) 50 mg PO HSZ PRN PRN Reason: Insomnia Stop: 01/31/24 17:29 Hydroxyzine HCl (Hydroxyzine Hcl 25 Mg Tab) 25 mg PO Q4H PRN PRN Reason: Anxiety Stop: 01/31/24 17:29 Magnesium Hydroxide (Magnesium Hydroxide Susp 30 Ml Udc) 30 ml PO DAILY PRN PRN Reason: Constipation Stop: 01/31/24 17:29 Mesalamine (Mesalamine 1.2 Gm Tabdr) 1.2 gm PO TID MARLI Stop: 02/01/24 13:59 Last Admin: 01/06/24 14:59 Dose: 1.2 gm Mirtazapine (Mirtazapine Tab 15 Mg Tab) 15 mg PO HS PRN PRN Reason: insomnia Stop: 02/02/24 21:59 Pantoprazole Sodium (Pantoprazole 40 Mg Tab) 40 mg PO QAM MARLI Stop: 02/01/24 10:29 Last Admin: 01/06/24 08:23 Dose: 40 mg Sertraline HCl (Sertraline Hcl 50 Mg Tablet) 50 mg PO QAM MARLI Stop: 02/04/24 08:59 Last Admin: 01/06/24 08:23 Dose: 50 mg Sodium Chloride (Sodium Chloride 0.65% Na Soln 45 Ml ([place])) 1 - 2 sprays NA PRN PRN PRN Reason: Nasal Dryness/Congestion Stop: 01/31/24 17:29 Mental Health & Subst Abuse Tx Psychiatrist Name of Psychiatrist: Aura De Los Santos Psychiatrist's Date Of Appointment With Psychiatric Provider: 01/08/24 Time of Appointment with Psychiatrist: 1:30 PM arrival Psychiatric Appointment Comment: [address] [place] [address] Therapist Name of Therapist: [facility] The[facility]ist's Phone Number: [phone] Date of Therapist Appointment: 01/15/2024 Time of Therapist Appointment: 1200 Therapy Appointment Comment: please bring insurance card to appt Post Discharge Appointments Primary Care Physician Name Of Family Doctor/PCP: [facility] - Heidy Cordero PA-C Primary Care Date of Future Appointment with PCP: 03/10/24 Time of Appointment with PCP: 1:20 PM Provider Appointment Comment: [address] [address] [place] [id number]
--- NOTE | 2024-01-07 09:48 | Discharge Summary ---
Date of Service January 07, 2024 History of Present Illness Odell presents for psychiatric admission for worsening depression and SI with possible plans. He notes his mind is always racing "all day" describing that "I either feel nothing or everything there is nothing in between". He endorses depressive symptoms including anhedonia, decreased motivation, social isolation, self-guilt, hopelessness, decreased energy, "angry and sadness", decreased appetite, and increased sleep. SI has been occurring daily. He also endorses symptoms of anxiety including generalized worries, easily overwhelmed, no history of panic attacks. He endorses PTSD symptoms including intrusive memories/flashbacks almost every day, mood changes-numbness or overwhelmed "there's no in between", hypervigilance, emotional lability, decreased concentration, decreased sleep/night terrors at least twice per week. He also identifies some symptoms of ADHD including that it's always hard to concentrate, very talkative as a child. Did well in school growing up. Talked a lot in school was often told to "shut up", was often going to peers desks "I got told to stay in my seat a lot but it was really hard to", gets distracted easily, hard to stay focused. He feels like "I'm pretty lazy" and wishes this could be changed. He feels he is always over analyzing everything he does such as when he's walking or brushing his teeth he feels like he needs to do it in a very specific way. Seems like he's been experiencing multiple symptoms consistent with possible OCD. He is currently prescribed Wellbutrin SR 100mg daily (doesn't feel like it is working, though no side effects, unclear why there haven't been any recent dose adjustments to trial higher dose for low motivation/difficulty with concentration and getting organized for tasks), and mirtazapine 30mg HS (feels it helps with sleep, no side effects) . Psychiatric ROS notable for no current nor history of symptoms of john, psychosis, self-harm nor eating disorder. 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 Physical Exam Mental Examination Appearance: Well Groomed Eye Contact: Avoids Eye Contact Motor Behavior: Unremarkable Speech: Normal Mood: Euthymic Affect: Constricted Thought Process: Circumstantial Thought Content: Intact Hallucinations: None Insight: Fair Judgement: Fair (improved) Vital Signs (Past 24 Hours) Last Vital Signs Temp 36.8 C 01/07/24 06:32 Pulse 79 01/07/24 06:33 Resp 18 01/07/24 06:32 BP 133/92 01/07/24 06:33 Pulse Ox 97 01/01/24 19:04 O2 Del Method Room Air 01/01/24 19:04 Principal Diagnosis MDD, recurrent, severe Psychiatric Data See daily stay summary. In short, safety was maintained and the patient was cooperative with care. Medication changes included d/c home mirtazapine, starting sertraline 50mg QD, adderall ir 5mg BID, and clonidine 0.1mg HS and they tolerated this well. A family session was held and safety plan was completed prior to discharge. Day of Discharge Assessment Today the patient voices readiness for discharge. They note improvement in mood and deny thoughts to harm self or others. Thoughts remain organized and they are improved from admission. There is no evidence of psychosis. They agree to take mediations as prescribed and keep follow-up appointments. They are stable for discharge to outpatient level of care. Transition of Care Transition Of Care Record: was reviewed with the patient Advance Directives Advance Directives Information Provided: No Advance Directives: No Mental Health Advance Directive: No Advance Directives on File: No Living Will: No Power of Freight Clerk: No Advance Directives Reason:: Declines as Mental Health Visit. Suicide Risk Level Suicide Risk Level Comments: Risk Factors Assessment Male: Yes : No Do You Have Access To A Gun?: No Health Problems: Yes Mental Health Diagnoses: Yes Substance Use Disorders: No Previous Attempt: No Family History of Suicide: Yes (attempts) Previous Psychiatric Hospitalization: No Protective Factors Assessment Employed: Yes ([employer]) Stable Relationships: Yes Supportive Family: Yes Discharge Data Lab Results 01/01/24 01/02/24 14:24 Unknown WBC 6.28 RBC 4.81 Hgb 11.9 L Hct 37.8 L MCV 78.6 L MCH 24.7 L MCHC 31.5 L RDW Std Deviation 43.1 RDW Coeff of Hima 15.1 H Plt Count 243 MPV 13.5 H Immature Gran % (Auto) 0.3 Neut % (Auto) 60.1 Lymph % (Auto) 15.1 Todd % (Auto) 20.2 Eos % (Auto) 3.8 Baso % (Auto) 0.5 Neut # (Auto) 3.77 Lymph # (Auto) 0.95 L Todd # (Auto) 1.27 H Eos # (Auto) 0.24 Baso # (Auto) 0.03 Immature Gran # (Auto) 0.02 Sodium 135 L Potassium 3.9 Chloride 103 Carbon Dioxide 25 Anion Gap 7 BUN 9 Creatinine 0.85 Est Cr Clr Drug Dosing 117.2 Est GFR ( Amer) 143.4 Est GFR (Non-Af Amer) 123.7 BUN/Creatinine Ratio 10.6 Glucose 100 H Calcium 8.9 Total Bilirubin 0.6 AST 19 ALT 9 Alkaline Phosphatase 84 Total Protein 6.9 Albumin 3.2 L Globulin 3.7 Albumin/Globulin Ratio 0.9 TSH 1.704 Urine Color Dark Yellow Urine Appearance Clear Urine pH 5.5 Ur Specific [place] 1.025 Urine Protein Negative Urine Glucose (UA) Negative Urine Ketones 2+ H Urine Blood Negative Urine Nitrite Negative Urine Bilirubin Negative Urine Urobilinogen Negative Ur Leukocyte Esterase Negative Salicylates < 3.0 L Urine Opiates Screen Neg Ur Methadone, Qual Neg Urine Fentanyl Screen Neg Acetaminophen < 3 L Urine Barbiturates Neg Ur Phencyclidine (PCP) Neg U Amphetamin/Meth Scrn Neg MDMA (Ecstasy) Screen Neg U Benzodiazepines Scrn Neg Ur Cocaine Metabolite Neg U Marijuana (THC) Screen Pos H U Marijuana THC Carboxy 1359 H Drug Screen Comment SEE NOTE Ethyl Alcohol mg/dL < 10.0 SARS-CoV-2, RNA, NAAT NEGATIVE Hospital Course (1) MDD (major depressive disorder), recurrent episode, severe: (2) ADHD (attention deficit hyperactivity disorder): (3) Trichotillomania: (4) Crohn's disease: Plan 01/06/2024: Continue current medications and treatment plan. 01/05/2024: -Decrease Adderall to 5mg IR BID morning and afternoon -Continue sertraline to 50mg qd -Continue clonidine 0.1mg HS 01/04/2024: -Increase Adderall ER to 20mg qAM tomorrow -Discontinue mirtazapine 15mg HS change to prn for insomnia -Increase sertraline to 50mg qd -Continue clonidine 0.1mg HS 01/03/2024: -Start Adderall IR test dose this afternoon of 5mg, Adderall XR 10mg starting tomorrow morning -Start sertraline 25mg qd -Decrease mirtazapine to 15mg HS -Continue clonidine 0.1mg HS 01/02/2024: The patient was admitted to the [facility] ([facility] inpatient [facility] health [facility]) on q15 min checks (behavioral with suicide precautions) for safety. The patient will participate in group, recreational, and milieu therapies and will be offered additional individual and family sessions as clinically appropriate. -Start clonidine 0.1mg HS -Hold off on Wellbutrin for now -Continue with mirtazapine 30mg HS -Likely will consider SSRI vs Strattera vs stimulant trial based on Y-BOCS and ADHD self-report -Y-BOCS -ADHD self-report checklist Mental Health & Subst Abuse Tx Psychiatrist Name of Psychiatrist: Aura De Los Santos Psychiatrist's Date Of Appointment With Psychiatric Provider: 01/08/24 Time of Appointment with Psychiatrist: 1:30 PM arrival Psychiatric Appointment Comment: [address] [place] [id number] Therapist Name of Therapist: [facility] Therapist's Phone Number: [phone] Date of Therapist Appointment: 01/15/2024 Time of Therapist Appointment: 1200 Therapy Appointment Comment: please bring insurance card to appt Post Discharge Appointments Primary Care Physician Name Of Family Doctor/PCP: [facility] - Heidy Cordero PA-C Primary Care Date of Future Appointment with PCP: 03/10/24 Time of Appointment with PCP: 1:20 PM Provider Appointment Comment: [address] [place] [id number] Contact Information Discharge Discharge Address: [address] [place] [address] Discharge Plan Discharge Items Patient Disposition: Home - Self-Care Reason For Visit: UNSPECIFIED DEPRESSIVE DISORDER Discharge Diagnosis: MDD, recurrent episode, severe ADHD Trichotillomania Chrohn's Disease Condition on Discharge: Fair Activity: Resume your previous activity Non-emergency contact: Primary Care Provider Call non-emergency contact if: you have any medication questions and your symptoms worsen Follow-up/Referrals: PCP,NO [Primary Care Provider] - Diet: Regular Addtl Attending Provider Instructions: -Continue Sertraline 50mg daily -Continue Adderall instant release 5mg in the morning and early afternoon -Continue Clonidine 0.1mg at bedtime -Around weeks 3-5, anxiety might get temporarily worse. This is normal and is an effect of the sertraline working. Continue treatment and take hydroxyzine 25 to 50mg NEEDED for anxiety or insomnia. Pending Studies at Discharge: No Stand-Alone Forms: My [facility] [employer], Smoking Cessation Medications and DC Order Prescriptions: New clonidine HCl 0.1 mg Tablet 0.1 mg PO HS Qty: 30 0RF dextroamphetamine-amphetamine 5 mg Tablet 5 mg PO BID@0800,1400 Qty: 60 0RF hydroxyzine HCl 50 mg tablet 50 mg PO HSZ PRN (Reason: anxiety, insomnia) Qty: 30 0RF sertraline 50 mg Tablet 50 mg PO QAM Qty: 30 1RF Continued budesonide 3 mg capsule,delayed,extend.release 9 mg PO QAM famotidine 20 mg tablet 20 mg PO BID omeprazole 20 mg capsule,delayed release(DR/EC) 20 mg PO QAM mesalamine 1.2 gram tablet,delayed release (DR/EC) 1.2 g PO TID Discontinued mirtazapine 30 mg tablet 30 mg PO HS Qty: 30 0RF bupropion HCl 100 mg tablet sustained-release 12 hr 100 mg PO QAM Discharge Orders: Discharge Order (Routine); Ordered 01/07/24 Ordered By: Arnie Brumfield Admission Data Admit Date/Time: 01/01/24 17:26 Attending Provider: Arnie Brumfield Admit Provider: Beckie Sandhu Primary Care Provider: PCPMATT Coding [place] [address] D/C day mgmt > 30 min Patient Type Established History Expanded Problem Focused Exam Expanded Problem Focused Medical Decision Making Moderate Complexity Diagnoses MDD (major depressive disorder), recurrent episode, severe F33.2 ADHD (attention deficit hyperactivity disorder) F90.9 Trichotillomania F63.3 Crohn's disease K50.90
--- NOTE | 2024-01-07 16:20 | Psychiatric Progress Note ---
Date of Service January 07, 2024 Impression / Recommendations Aubrie Bain is a 23-year-old man with a history of persistent depressive disorder, and was admitted on 01/01/24 17:26 on a 201 voluntary commitment for SI with possible plans and feeling unable to remain safe. Diagnostically consistent with unspecified depressive disorder. Seems that many of his symptoms are likely due to a combination of major depression, PTSD, and YOLY. Suspect he may also have OCD and ADHD. A: Concern for hypomania/john given mood lability, decreased need for sleep, racing thoughts, presentation of multiple goal directed activities, elevated energy and mood. Collateral reveals past episodes of similar behavior. Unclear if precipitated by initiation of SSRI antidepressant or present prior. Plan to hold sertraline and Adderall and start lorazepam 2 mg at bedtime. Plan discussed with patient and mother and agreeable. Overall, I spent a total of 70 minutes with this case including review of chart records, nursing report, direct evaluation of the patient at bedside, counseling the patient, multidisciplinary team meeting, orders, gathering collateral from family, and documentation in the electronic health record. (1) John: (2) Trichotillomania: (3) Crohn's disease: Plan 01/07/2024: Hold sertraline and Adderall. Start lorazepam 2 mg at bedtime. 01/06/2024: Continue current medications and treatment plan. 01/05/2024: -Decrease Adderall to 5mg IR BID morning and afternoon -Continue sertraline to 50mg qd -Continue clonidine 0.1mg HS 01/04/2024: -Increase Adderall ER to 20mg qAM tomorrow -Discontinue mirtazapine 15mg HS change to prn for insomnia -Increase sertraline to 50mg qd -Continue clonidine 0.1mg HS 01/03/2024: -Start Adderall IR test dose this afternoon of 5mg, Adderall XR 10mg starting tomorrow morning -Start sertraline 25mg qd -Decrease mirtazapine to 15mg HS -Continue clonidine 0.1mg HS 01/02/2024: The patient was admitted to the [facility] ([facility] mental health unit) on q15 min checks (behavioral with suicide precautions) for safety. The patient will participate in group, recreational, and milieu therapies and will be offered additional individual and family sessions as clinically appropriate. -Start clonidine 0.1mg HS -Hold off on Wellbutrin for now -Continue with mirtazapine 30mg HS -Likely will consider SSRI vs Strattera vs stimulant trial based on Y-BOCS and ADHD self-report -Y-BOCS -ADHD self-report checklist Inventory Assets Strengths: supportive relationships, willing to get treatment Needs: safety and stabilization, medication adjustment, additional coping skills, increased outpatient services Suicide Risk Level Suicide Risk Level: Moderate (q15 min suicide checks) (depression with SI prior to admission and with OCD and PTSD but now denies SI and feels safe in the hospital, feels able to let staff know if he feels unsafe ) Suicide Risk Level Comments: Risk Factors Assessment Male: Yes : No Do You Have Access To A Gun?: No Health Problems: Yes Mental Health Diagnoses: Yes Substance Use Disorders: No Previous Attempt: No Family History of Suicide: Yes (attempts) Previous Psychiatric Hospitalization: No Protective Factors Assessment Employed: Yes ([employer]) Stable Relationships: Yes Supportive Family: Yes Interval History Identifying Information KEKE VILLAR is a 23-year-old M who currently lives in [place] with roommates including his brother, has a history of persistent depressive disorder and trichotillomania, and was admitted on 01/01/24 17:26 on a 201 voluntary commitment for SI with possible plans and feeling unable to remain safe. Chief Complaint "Feel really good". Review of Systems Sleep Information Total Hours of Sleep: 4.5 Sleep Comments: HS Clonidine and Remeron Meal Information Percent Meal Consumed - Breakfast: 75 Percent Meal Consumed - Lunch: 50 Percent Meal Consumed - Dinner: 75 Nutrition Comment: Patient requested to package dinner and save it in the fridge for later. Subjective Subjective Patient was seen & assessed and interval progress reviewed with treatment team nursing and social work This a.m. patient had questions about medications and was clarified. He had a family meeting with mother and appeared distressed with tangential, pressured speech and mood lability. When interviewed individually he presented racing thoughts, emotional lability, restlessness, endorsements of feeling "really good", and multiple goal directed activities. Presenting verb abstract thoughts. He discussed now being able to talk about past traumas and not being able to in the past and becomes tearful. Called patient's mother Kira Cormier [phone] with pt permission: Reflecting on the meeting she described the patient as high strung, Restless, Tearful, Aggressive, speaking "Gibberish." Sunday was quieter and more matter of fact. Doesn't have good sleep. C/o racing thoughts. Restless even prior hospitalization. Past bizarre behaviors such as trekking through the wood unexpectedly and worrisome to mother. Physical Exam Mental Examination Appearance: Well Groomed Eye Contact: Avoids Eye Contact Motor Behavior: Restless Speech: Excessive Mood: Euthymic Affect: Labile Thought Process: Circumstantial Thought Content: Intact Hallucinations: None Insight: Poor Judgement: Poor Vital Signs (Past 24 Hours) Last Vital Signs Temp 36.8 C 01/07/24 12:08 Pulse 98 H 01/07/24 12:08 Resp 18 01/07/24 12:08 BP 133/92 01/07/24 12:08 Pulse Ox 97 01/07/24 12:08 O2 Del Method Room Air 01/01/24 19:04 Results & Data ([facility]) Current Inpatient Medications Current Inpatient Medications: Current Inpatient Medications Acetaminophen (Acetaminophen 325 Mg Tab) 650 mg PO Q4H PRN PRN Reason: Headache or Minor Fever Stop: 01/31/24 17:29 Last Admin: 01/05/24 23:00 Dose: 650 mg Al Hydrox/Mg Hydrox/Simethicone (Aluminum/Magnesium Susp 30 Ml Udc) 30 ml PO Q4H PRN PRN Reason: GI Upset Stop: 01/31/24 17:29 Amphetamine/Dextroamphetamine (Dextroamphetamine/Amphetamime Ir 5 Mg Tab) 5 mg PO BID@0800,1400 [facility] Stop: 01/20/24 07:59 Last Admin: 01/07/24 14:50 Dose: Not Given Bismuth Subsalicylate (Bismuth Subsalicylate Liqd 236 Ml) 15 ml PO PRN PRN PRN Reason: Loose Stool Stop: 01/31/24 17:29 Budesonide (Budesonide Ec 3 Mg Cap) 9 mg PO QAM [facility] Stop: 02/01/24 10:14 Last Admin: 01/07/24 08:37 Dose: 9 mg Clonidine HCl (Clonidine Hcl 0.1 Mg Tab) 0.1 mg PO HS [facility] Stop: 02/01/24 21:59 Last Admin: 01/06/24 22:07 Dose: 0.1 mg Famotidine (Famotidine 20 Mg Tab) 20 mg PO BID [facility] Stop: 02/01/24 10:29 Last Admin: 01/07/24 08:37 Dose: 20 mg Hydroxyzine HCl (Hydroxyzine Hcl 25 Mg Tab) 50 mg PO HSZ PRN PRN Reason: Insomnia Stop: 01/31/24 17:29 Hydroxyzine HCl (Hydroxyzine Hcl 25 Mg Tab) 25 mg PO Q4H PRN PRN Reason: Anxiety Stop: 01/31/24 17:29 Lorazepam (Lorazepam 1 Mg Tab) 2 mg PO HS [facility] Stop: 02/06/24 21:59 Magnesium Hydroxide (Magnesium Hydroxide Susp 30 Ml Udc) 30 ml PO DAILY PRN PRN Reason: Constipation Stop: 01/31/24 17:29 Mesalamine (Mesalamine 1.2 Gm Tabdr) 1.2 gm PO TID [facility] Stop: 02/01/24 13:59 Last Admin: 01/07/24 14:30 Dose: 1.2 gm Mirtazapine (Mirtazapine Tab 15 Mg Tab) 15 mg PO HS PRN PRN Reason: insomnia Stop: 02/02/24 21:59 Pantoprazole Sodium (Pantoprazole 40 Mg Tab) 40 mg PO QAM [facility] Stop: 02/01/24 10:29 Last Admin: 01/07/24 08:38 Dose: 40 mg Sertraline HCl (Sertraline Hcl 50 Mg Tablet) 50 mg PO QAM [facility] Stop: 02/04/24 08:59 Last Admin: 01/07/24 08:38 Dose: 50 mg Sodium Chloride (Sodium Chloride 0.65% Na Soln 45 Ml ([place])) 1 - 2 sprays NA PRN PRN PRN Reason: Nasal Dryness/Congestion Stop: 01/31/24 17:29 Mental Health & Subst Abuse Tx Psychiatrist Name of Psychiatrist: Aura De Los Santos Psychiatrist's Date Of Appointment With Psychiatric Provider: 01/08/24 Time of Appointment with Psychiatrist: 1:30 PM arrival Psychiatric Appointment Comment: [address] [facility], [facility] [address] Psychiatrist Release of Information: Obtained, Reviewed and Signed Therapist Name of Therapist: Cesar Hinojosa Therapist's Phone Number: [phone] Date of Therapist Appointment: 01/15/2024 Time of Therapist Appointment: 1200 Therapy Appointment Comment: please bring insurance card to appt Therapist Release of Information: Obtained, Reviewed and Signed Post Discharge Appointments Primary Care Physician Name Of Family Doctor/PCP: [facility] - Heidy Cordero PA-C Primary Care Date of Future Appointment with PCP: 03/10/24 Time of Appointment with PCP: 1:20 PM Provider Appointment Comment: [address] [place] [address] Primary Care Release of Information: Obtained, Reviewed and Signed Contact Information Discharge Discharge Address: [address] [place] [address], [place] [address]
[2024-01-07] MEDS: LORazepam 1 MG TAB PO SCH (21:04)
[2024-01-07] MEDS ORDERED: LORazepam 1 MG TAB PO SCH (22:00)
[2024-01-08] MEDS: lamoTRIgine 25 MG TAB PO SCH (14:18)
--- NOTE | 2024-01-08 14:55 | Psychiatric Progress Note ---
Date of Service January 08, 2024 Impression / Recommendations Impression Odell is a 23-year-old man with a history of persistent depressive disorder, and was admitted on 01/01/24 17:26 on a 201 voluntary commitment for SI with possible plans and feeling unable to remain safe. Diagnostically consistent with unspecified depressive disorder. Seems that many of his symptoms are likely due to a combination of major depression, PTSD, and YOLY. Suspect he may also have OCD and ADHD. A: After reviewing mood history with the patient there is concern for a bipolar 2 disorder with past major depressive episode and hypomania. He denies having significant dysfunction during his hypomanic episodes and his main concern is depression. It is possible that sertraline initiation may have precipitated a hypomanic episode in addition Adderall may have worsened sleep. Sertraline and Adderall discontinued. Nightly lorazepam decreased to 1 mg at bedtime. Plan to start lamotrigine 25 mg every morning; medication side effects and adverse effects discussed with the patient and handout provided; patient is agreeable to treatment. Attempted to gather collateral from mother and we will try again tomorrow. Overall, I spent a total of 70 minutes with this case including review of chart records, nursing report, direct evaluation of the patient at bedside, counseling the patient, multidisciplinary team meeting, orders, gathering collateral from family, and documentation in the electronic health record. (1) Bipolar 2 disorder: (2) Trichotillomania: (3) ADHD (attention deficit hyperactivity disorder): (4) Crohn's disease: Plan 01/08/2024: Decrease lorazepam to 1 mg at bedtime. Start lamotrigine 25 mg daily. 01/07/2024: D/c sertraline and Adderall. Start lorazepam 2 mg at bedtime. 01/06/2024: Continue current medications and treatment plan. 01/05/2024: -Decrease Adderall to 5mg IR BID morning and afternoon -Continue sertraline to 50mg qd -Continue clonidine 0.1mg HS 01/04/2024: -Increase Adderall ER to 20mg qAM tomorrow -Discontinue mirtazapine 15mg HS change to prn for insomnia -Increase sertraline to 50mg qd -Continue clonidine 0.1mg HS 01/03/2024: -Start Adderall IR test dose this afternoon of 5mg, Adderall XR 10mg starting tomorrow morning -Start sertraline 25mg qd -Decrease mirtazapine to 15mg HS -Continue clonidine 0.1mg HS 01/02/2024: The patient was admitted to the [facility] ([facility]) on q15 min checks (behavioral with suicide precautions) for safety. The patient will participate in group, recreational, and milieu therapies and will be offered additional individual and family sessions as clinically appropriate. -Start clonidine 0.1mg HS -Hold off on Wellbutrin for now -Continue with mirtazapine 30mg HS -Likely will consider SSRI vs Strattera vs stimulant trial based on Y-BOCS and ADHD self-report -Y-BOCS -ADHD self-report checklist Inventory Assets Strengths: supportive relationships, willing to get treatment Needs: safety and stabilization, medication adjustment, additional coping skills, increased outpatient services Suicide Risk Level Suicide Risk Level: Moderate (q15 min suicide checks) (depression with SI prior to admission and with OCD and PTSD but now denies SI and feels safe in the hospital, feels able to let staff know if he feels unsafe ) Suicide Risk Level Comments: Risk Factors Assessment Male: Yes : No Do You Have Access To A Gun?: No Health Problems: Yes Mental Health Diagnoses: Yes Substance Use Disorders: No Previous Attempt: No Family History of Suicide: Yes (attempts) Previous Psychiatric Hospitalization: No Protective Factors Assessment Employed: Yes ([employer]) Stable Relationships: Yes Supportive Family: Yes Interval History Identifying Information ODELL VILLAR is a 23-year-old M who currently lives in [place] with roommates including his brother, has a history of persistent depressive disorder and trichotillomania, and was admitted on 01/01/24 17:26 on a 201 voluntary commitment for SI with possible plans and feeling unable to remain safe. Chief Complaint "Sleepy". Review of Systems Sleep Information Total Hours of Sleep: 7.25 Sleep Comments: HS Clonidine and Remeron Meal Information Percent Meal Consumed - Breakfast: 75 Percent Meal Consumed - Lunch: 50 Percent Meal Consumed - Dinner: 75 Nutrition Comment: Patient requested to package dinner and save it in the fridge for later. Subjective Subjective Patient was seen & assessed and interval progress reviewed with treatment team nursing and social work Patient reports being dizzy and sleepy this morning. Had bowel incident overnight. Feels more rested. On exam appears calmer, less restless, presents more clear and linear speech. Reports that he has a half brother who has a bipolar condition; unable to clarify much further. Reports in the past having multiple times he was "manic". He reports up to a 2-day period where he did not sleep and felt more energetic. He reports other times when he slept maybe an hour but still had energy. He reports difficulty recalling what he felt during those times. He confirmed that he did have "better than normal self-esteem" during those periods and was more restless. He reports his main issues have been "sadness" and not being heard or understood by family. During those times of sadness he complains of being more "tired", having less energy, having poor concentration, having less motivation and pleasure. Reports this has been going on for the past 6 months and has gotten worse. We discussed the potential condition and treatments. Reassured. Called patient's mother Kira Cormier [phone] with pt permission: went to [facility] x[facility] Physical Exam Mental Examination Appearance: Well Groomed Eye Contact: Avoids Eye Contact Motor Behavior: Unremarkable Speech: Normal Mood: Euthymic Affect: Congruent Thought Process: Intact Thought Content: Intact Hallucinations: None Insight: Poor (to limited) Judgement: Poor Vital Signs (Past 24 Hours) Last Vital Signs Temp 36.6 C 01/08/24 06:26 Pulse 102 H 01/08/24 06:27 Resp 16 01/08/24 06:26 BP 105/70 01/08/24 06:27 Pulse Ox 99 01/08/24 06:26 O2 Del Method Room Air 01/08/24 06:26 Results & Data ([facility]) Current Inpatient Medications Current Inpatient Medications: Current Inpatient Medications Acetaminophen (Acetaminophen 325 Mg Tab) 650 mg PO Q4H PRN PRN Reason: Headache or Minor Fever Stop: 01/31/24 17:29 Last Admin: 01/05/24 23:00 Dose: 650 mg Al Hydrox/Mg Hydrox/Simethicone (Aluminum/Magnesium Susp 30 Ml Udc) 30 ml PO Q4H PRN PRN Reason: GI Upset Stop: 01/31/24 17:29 Bismuth Subsalicylate (Bismuth Subsalicylate Liqd 236 Ml) 15 ml PO PRN PRN PRN Reason: Loose Stool Stop: 01/31/24 17:29 Budesonide (Budesonide Ec 3 Mg Cap) 9 mg PO QAM [facility] Stop: 02/01/24 10:14 Last Admin: 01/08/24 09:10 Dose: 9 mg Clonidine HCl (Clonidine Hcl 0.1 Mg Tab) 0.1 mg PO HS [facility] Stop: 02/01/24 21:59 Last Admin: 01/07/24 21:04 Dose: 0.1 mg Famotidine (Famotidine 20 Mg Tab) 20 mg PO BID [facility] Stop: 02/01/24 10:29 Last Admin: 01/08/24 09:10 Dose: 20 mg Hydroxyzine HCl (Hydroxyzine Hcl 25 Mg Tab) 50 mg PO HSZ PRN PRN Reason: Insomnia Stop: 01/31/24 17:29 Hydroxyzine HCl (Hydroxyzine Hcl 25 Mg Tab) 25 mg PO Q4H PRN PRN Reason: Anxiety Stop: 01/31/24 17:29 Lamotrigine (Lamotrigine 25 Mg Tab) 25 mg PO QAM [facility]; Protocol Stop: 02/07/24 13:29 Last Admin: 01/08/24 14:18 Dose: 25 mg Lorazepam (Lorazepam 1 Mg Tab) 1 mg PO HS [facility] Stop: 02/07/24 21:59 Magnesium Hydroxide (Magnesium Hydroxide Susp 30 Ml Udc) 30 ml PO DAILY PRN PRN Reason: Constipation Stop: 01/31/24 17:29 Mesalamine (Mesalamine 1.2 Gm Tabdr) 1.2 gm PO TID [facility] Stop: 02/01/24 13:59 Last Admin: 01/08/24 14:23 Dose: 1.2 gm Pantoprazole Sodium (Pantoprazole 40 Mg Tab) 40 mg PO QAM [facility] Stop: 02/01/24 10:29 Last Admin: 01/08/24 09:10 Dose: 40 mg Sodium Chloride (Sodium Chloride 0.65% Na Soln 45 Ml ([place])) 1 - 2 sprays NA PRN PRN PRN Reason: Nasal Dryness/Congestion Stop: 01/31/24 17:29 Mental Health & Subst Abuse Tx Psychiatrist Name of Psychiatrist: Aura De Los Santos Psychiatrist's Date Of Appointment With Psychiatric Provider: 01/14/24 Time of Appointment with Psychiatrist: 11:15 AM Psychiatric Appointment Comment: [address] [place] [address] Psychiatrist Release of Information: Obtained, Reviewed and Signed Therapist Name of Therapist: [facility] Therapist's Phone Number: [phone] Date of Therapist Appointment: 01/15/2024 Time of Therapist Appointment: 1200 Therapy Appointment Comment: please bring insurance card to appt Therapist Release of Information: Obtained, Reviewed and Signed Post Discharge Appointments Primary Care Physician Name Of Family Doctor/PCP: [facility] - Heidy Cordero PA-C Primary Care Date of Future Appointment with PCP: 03/10/24 Time of Appointment with PCP: 1:20 PM Provider Appointment Comment: [address] [place] [address] Primary Care Release of Information: Obtained, Reviewed and Signed Contact Information Discharge Discharge Address: [address] [place] [address] [place] [address]
[2024-01-08] MEDS: LORazepam 1 MG TAB PO SCH (21:03)
--- NOTE | 2024-01-09 16:58 | Psychiatric Progress Note ---
Date of Service January 09, 2024 Impression / Recommendations Aubrie Bain is a 23-year-old man with a history of persistent depressive disorder, and was admitted on 01/01/24 17:26 on a 201 voluntary commitment for SI with possible plans and feeling unable to remain safe. A: Clarified symptoms with patient and patient's mother. Concern for problematic behaviors during hypomanic episodes with excess spending and more severe depression symptoms than patient is reporting. Plan to start Abilify 10 mg at bedtime for mood stabilization; medication adverse effects and side effects discussed with patient and agreeable. MNPR for restless behaviors. Overall, I spent a total of 70 minutes with this case including review of chart records, nursing report, direct evaluation of the patient at bedside, counseling the patient, multidisciplinary team meeting, orders, gathering collateral from family, and documentation in the electronic health record. (1) Bipolar 2 disorder: (2) Trichotillomania: (3) ADHD (attention deficit hyperactivity disorder): (4) Crohn's disease: Plan 01/09/2024: Dietary consult. Start aripiprazole 10 mg at bedtime. 01/08/2024: Decrease lorazepam to 1 mg at bedtime. Start lamotrigine 25 mg farhan y. 01/07/2024: D/c sertraline and Adderall. Start lorazepam 2 mg at bedtime. 01/06/2024: Continue current medications and treatment plan. 01/05/2024: -Decrease Adderall to 5mg IR BID morning and afternoon -Continue sertraline to 50mg qd -Continue clonidine 0.1mg HS 01/04/2024: -Increase Adderall ER to 20mg qAM tomorrow -Discontinue mirtazapine 15mg HS change to prn for insomnia -Increase sertraline to 50mg qd -Continue clonidine 0.1mg HS 01/03/2024: -Start Adderall IR test dose this afternoon of 5mg, Adderall XR 10mg starting tomorrow morning -Start sertraline 25mg qd -Decrease mirtazapine to 15mg HS -Continue clonidine 0.1mg HS 01/02/2024: The patient was admitted to the [facility] ([facility] mental health unit) on q15 min checks (behavioral with suicide precautions) for safety. The patient will participate in group, recreational, and milieu therapies and will be offered additional individual and family sessions as clinically appropriate. -Start clonidine 0.1mg HS -Hold off on Wellbutrin for now -Continue with mirtazapine 30mg HS -Likely will consider SSRI vs Strattera vs stimulant trial based on Y-BOCS and ADHD self-report -Y-BOCS -ADHD self-report checklist Inventory Assets Strengths: supportive relationships, willing to get treatment Needs: safety and stabilization, medication adjustment, additional coping skills, increased outpatient services Suicide Risk Level Suicide Risk Level: Moderate (q15 min suicide checks) (depression with SI prior to admission and with OCD and PTSD but now denies SI and feels safe in the hospital, feels able to let staff know if he feels unsafe ) Suicide Risk Level Comments: Risk Factors Assessment Male: Yes : No Do You Have Access To A Gun?: No Health Problems: Yes Mental Health Diagnoses: Yes Substance Use Disorders: No Previous Attempt: No Family History of Suicide: Yes (attempts) Previous Psychiatric Hospitalization: No Protective Factors Assessment Employed: Yes ([employer]) Stable Relationships: Yes Supportive Family: Yes Interval History Identifying Information KEKE VILLAR is a 23-year-old M who currently lives in [place] with roommates including his brother, has a history of persistent depressive disorder and trichotillomania, and was admitted on 01/01/24 17:26 on a 201 voluntary commitment for SI with possible plans and feeling unable to remain safe. Chief Complaint "okay". Review of Systems Sleep Information Total Hours of Sleep: 7.30 Sleep Comments: HS Ativan Meal Information Percent Meal Consumed - Breakfast: 100 Percent Meal Consumed - Lunch: 100 Percent Meal Consumed - Dinner: 100 Nutrition Comment: Patient requested to package dinner and save it in the fridge for later. Subjective Subjective Patient was seen & assessed and interval progress reviewed with treatment team nursing and social work cripple worker visited yesterday and spoke to the patient at length. Seen by dietitian today. Slept 7.5 hours. Patient experiencing GI symptoms. Patient reports feeling well rested. Feels "okay". Rates energy 8 out of 10. Denies feeling anxious. Reports not having a Crohn's disease flare and feels differently when he does. Provided advice on diet to improve current symptoms. Discussed concern for bipolar depression. Denies having problems during hypomanic episodes. Called patient's mother Kira Cormier [phone] with pt permission: 10:40am went to . 1:18pm Presents 2-3 days period where pt is moving topic to topic, rapid speech, restless. Excessive with money spending. Concerning behavior at time. Isolates at time. Mother details letter about how pt c/o nightmares, anxiety, repressed memories, worried about turning to alcoholism to numb pain. Physical Exam Mental Examination Appearance: Well Groomed Eye Contact: Avoids Eye Contact Motor Behavior: Unremarkable Speech: Normal Mood: Euthymic Affect: Congruent Thought Process: Intact Thought Content: Intact Hallucinations: None Insight: Poor (to limited) Judgement: Fair Vital Signs (Past 24 Hours) Last Vital Signs Temp 35.9 C L 01/09/24 06:00 Pulse 105 H 01/09/24 06:11 Resp 16 01/09/24 06:00 BP 111/78 01/09/24 06:11 Pulse Ox 99 01/08/24 06:26 O2 Del Method Room Air 01/08/24 06:26 Results & Data ([facility]) Current Inpatient Medications Current Inpatient Medications: Current Inpatient Medications Acetaminophen (Acetaminophen 325 Mg Tab) 650 mg PO Q4H PRN PRN Reason: Headache or Minor Fever Stop: 01/31/24 17:29 Last Admin: 01/05/24 23:00 Dose: 650 mg Al Hydrox/Mg Hydrox/Simethicone (Aluminum/Magnesium Susp 30 Ml Udc) 30 ml PO Q4H PRN PRN Reason: GI Upset Stop: 01/31/24 17:29 Aripiprazole (Aripiprazole 10 Mg Tab) 10 mg PO HS MARLI Stop: 02/08/24 21:59 Bismuth Subsalicylate (Bismuth Subsalicylate Liqd 236 Ml) 15 ml PO PRN PRN PRN Reason: Loose Stool Stop: 01/31/24 17:29 Budesonide (Budesonide Ec 3 Mg Cap) 9 mg PO QAM MARLI Stop: 02/01/24 10:14 Last Admin: 01/09/24 08:44 Dose: 9 mg Clonidine HCl (Clonidine Hcl 0.1 Mg Tab) 0.1 mg PO HS MARLI Stop: 02/01/24 21:59 Last Admin: 01/08/24 20:56 Dose: 0.1 mg Famotidine (Famotidine 20 Mg Tab) 20 mg PO BID MARLI Stop: 02/01/24 10:29 Last Admin: 01/09/24 08:45 Dose: 20 mg Hydroxyzine HCl (Hydroxyzine Hcl 25 Mg Tab) 50 mg PO HSZ PRN PRN Reason: Insomnia Stop: 01/31/24 17:29 Hydroxyzine HCl (Hydroxyzine Hcl 25 Mg Tab) 25 mg PO Q4H PRN PRN Reason: Anxiety Stop: 01/31/24 17:29 Lamotrigine (Lamotrigine 25 Mg Tab) 25 mg PO QAM MARLI; Protocol Stop: 02/07/24 13:29 Last Admin: 01/09/24 08:45 Dose: 25 mg Lorazepam (Lorazepam 0.5 Mg Tab) 0.5 mg PO HS MARLI Stop: 02/08/24 21:59 Magnesium Hydroxide (Magnesium Hydroxide Susp 30 Ml Udc) 30 ml PO DAILY PRN PRN Reason: Constipation Stop: 01/31/24 17:29 Mesalamine (Mesalamine 1.2 Gm Tabdr) 1.2 gm PO TID MARLI Stop: 02/01/24 13:59 Last Admin: 01/09/24 13:57 Dose: 1.2 gm Pantoprazole Sodium (Pantoprazole 40 Mg Tab) 40 mg PO QAM MARLI Stop: 02/01/24 10:29 Last Admin: 01/09/24 08:45 Dose: 40 mg Sodium Chloride (Sodium Chloride 0.65% Na Soln 45 Ml ([place])) 1 - 2 sprays NA PRN PRN PRN Reason: Nasal Dryness/Congestion Stop: 01/31/24 17:29 Mental Health & Subst Abuse Tx Psychiatrist Name of Psychiatrist: Aura De Los Santos Psychiatrist's Date Of Appointment With Psychiatric Provider: 01/14/24 Time of Appointment with Psychiatrist: 11:15 AM Psychiatric Appointment Comment: [address] [place] [address] Psychiatrist Release of Information: Obtained, Reviewed and Signed Therapist Name of Therapist: Cesar Hinojosa Therapist's Phone Number: [phone] Date of Therapist Appointment: 01/15/2024 Time of Therapist Appointment: 1200 Therapy Appointment Comment: please bring insurance card to appt Therapist Release of Information: Obtained, Reviewed and Signed Post Discharge Appointments Primary Care Physician Name Of Family Doctor/PCP: [facility] - Heidy Cordero PA-C Primary Care Date of Future Appointment with PCP: 03/10/24 Time of Appointment with PCP: 1:20 PM Provider Appointment Comment: [address] [place] [address] Primary Care Release of Information: Obtained, Reviewed and Signed Contact Information Discharge Discharge Address: [facility] [place] [address]
[2024-01-09] MEDS: ARIPiprazole 10 MG TAB PO SCH (21:06)
[2024-01-09] MEDS: LORazepam 0.5 MG TAB PO SCH (21:06)
--- NOTE | 2024-01-10 16:08 | Psychiatric Progress Note ---
Date of Service January 10, 2024 Impression / Recommendations Aubrie Bain is a 23-year-old man with a history of persistent depressive disorder, and was admitted on 01/01/24 17:26 on a 201 voluntary commitment for SI with possible plans and feeling unable to remain safe. A: Pt is tolerating abilify well. Continues to sleep well with decreased lorazepam dose. Educated about medication adherence. Improved outlook and future oriented. MNPR for GI disturbances and voiding. Overall, I spent a total of 30 minutes with this case including review of chart records, nursing report, direct evaluation of the patient at bedside, counseling the patient, multidisciplinary team meeting, orders, and documentation in the electronic health record. (1) Bipolar 2 disorder: (2) Trichotillomania: (3) ADHD (attention deficit hyperactivity disorder): (4) Crohn's disease: Plan 01/10/2024: Continue medications and treatment plan. 01/09/2024: Dietary consult. Start aripiprazole 10 mg at bedtime. Decrease Lorazepam 0.5mg HS. 01/08/2024: Decrease lorazepam to 1 mg at bedtime. Start lamotrigine 25 mg daily. 01/07/2024: D/c sertraline and Adderall. Start lorazepam 2 mg at bedtime. 01/06/2024: Continue current medications and treatment plan. 01/05/2024: -Decrease Adderall to 5mg IR BID morning and afternoon -Continue sertraline to 50mg qd -Continue clonidine 0.1mg HS 01/04/2024: -Increase Adderall ER to 20mg qAM tomorrow -Discontinue mirtazapine 15mg HS change to prn for insomnia -Increase sertraline to 50mg qd -Continue clonidine 0.1mg HS 01/03/2024: -Start Adderall IR test dose this afternoon of 5mg, Adderall XR 10mg starting tomorrow morning -Start sertraline 25mg qd -Decrease mirtazapine to 15mg HS -Continue clonidine 0.1mg HS 01/02/2024: The patient was admitted to the [facility] ([facility]) on q15 min checks (behavioral with suicide precautions) for safety. The patient will participate in group, recreational, and milieu therapies and will be offered additional individual and family sessions as clinically appropriate. -Start clonidine 0.1mg HS -Hold off on Wellbutrin for now -Continue with mirtazapine 30mg HS -Likely will consider SSRI vs Strattera vs stimulant trial based on Y-BOCS and ADHD self-report -Y-BOCS -ADHD self-report checklist Inventory Assets Strengths: supportive relationships, willing to get treatment Needs: safety and stabilization, medication adjustment, additional coping skills, increased outpatient services Suicide Risk Level Suicide Risk Level: Moderate (q15 min suicide checks) (depression with SI prior to admission and with OCD and PTSD but now denies SI and feels safe in the hospital, feels able to let staff know if he feels unsafe ) Suicide Risk Level Comments: Risk Factors Assessment Male: Yes : No Do You Have Access To A Gun?: No Health Problems: Yes Mental Health Diagnoses: Yes Substance Use Disorders: No Previous Attempt: No Family History of Suicide: Yes (attempts) Previous Psychiatric Hospitalization: No Protective Factors Assessment Employed: Yes ([employer]) Stable Relationships: Yes Supportive Family: Yes Interval History Identifying Information KEKE VILLAR is a 23-year-old M who currently lives in [place] with roommates including his brother, has a history of persistent depressive disorder and trichotillomania, and was admitted on 01/01/24 17:26 on a 201 voluntary commitment for SI with possible plans and feeling unable to remain safe. Chief Complaint "Well" Review of Systems Sleep Information Total Hours of Sleep: 6.5 Sleep Comments: HS Ativan Meal Information Percent Meal Consumed - Breakfast: 100 Percent Meal Consumed - Lunch: 100 Percent Meal Consumed - Dinner: 100 Nutrition Comment: Patient requested to package dinner and save it in the fridge for later. Subjective Subjective Patient was seen & assessed and interval progress reviewed with treatment team nursing and social work Nursing reports patient appears less restless. Patient slept well overnight. Rates fair mood. His mom can sweet pickled fruit maker patient tomorrow. Patient is looking forward to a bowling, buying clothes, and spending time with siblings tomorrow. Denies SI HI. Presents no further concerns. Physical Exam Mental Examination Appearance: Well Groomed Eye Contact: Avoids Eye Contact Motor Behavior: Unremarkable Speech: Normal Mood: Euthymic Affect: Congruent Thought Process: Intact Thought Content: Intact Hallucinations: None Insight: Poor (to limited) Judgement: Fair Vital Signs (Past 24 Hours) Last Vital Signs Temp 35.9 C L 01/10/24 06:00 Pulse 98 H 01/10/24 06:33 Resp 16 01/10/24 06:00 BP 118/71 01/10/24 06:33 Pulse Ox 99 01/08/24 06:26 O2 Del Method Room Air 01/08/24 06:26 Results & Data ([facility]) Current Inpatient Medications Current Inpatient Medications: Current Inpatient Medications Acetaminophen (Acetaminophen 325 Mg Tab) 650 mg PO Q4H PRN PRN Reason: Headache or Minor Fever Stop: 01/31/24 17:29 Last Admin: 01/05/24 23:00 Dose: 650 mg Al Hydrox/Mg Hydrox/Simethicone (Aluminum/Magnesium Susp 30 Ml Udc) 30 ml PO Q4H PRN PRN Reason: GI Upset Stop: 01/31/24 17:29 Aripiprazole (Aripiprazole 10 Mg Tab) 10 mg PO HS MARLI Stop: 02/08/24 21:59 Last Admin: 01/09/24 21:06 Dose: 10 mg Bismuth Subsalicylate (Bismuth Subsalicylate Liqd 236 Ml) 15 ml PO PRN PRN PRN Reason: Loose Stool Stop: 01/31/24 17:29 Budesonide (Budesonide Ec 3 Mg Cap) 9 mg PO QAM [facility] Stop: 02/01/24 10:14 Last Admin: 01/10/24 08:44 Dose: 9 mg Clonidine HCl (Clonidine Hcl 0.1 Mg Tab) 0.1 mg PO HS [facility] Stop: 02/01/24 21:59 Last Admin: 01/09/24 21:06 Dose: 0.1 mg Famotidine (Famotidine 20 Mg Tab) 20 mg PO BID MARLI Stop: 02/01/24 10:29 Last Admin: 01/10/24 08:44 Dose: 20 mg Hydroxyzine HCl (Hydroxyzine Hcl 25 Mg Tab) 50 mg PO HSZ PRN PRN Reason: Insomnia Stop: 01/31/24 17:29 Hydroxyzine HCl (Hydroxyzine Hcl 25 Mg Tab) 25 mg PO Q4H PRN PRN Reason: Anxiety Stop: 01/31/24 17:29 Lamotrigine (Lamotrigine 25 Mg Tab) 25 mg PO QAM [facility]; Protocol Stop: 02/07/24 13:29 Last Admin: 01/10/24 08:44 Dose: 25 mg Lorazepam (Lorazepam 0.5 Mg Tab) 0.5 mg PO HS MARLI Stop: 02/08/24 21:59 Last Admin: 01/09/24 21:06 Dose: 0.5 mg Magnesium Hydroxide (Magnesium Hydroxide Susp 30 Ml Udc) 30 ml PO DAILY PRN PRN Reason: Constipation Stop: 01/31/24 17:29 Mesalamine (Mesalamine 1.2 Gm Tabdr) 1.2 gm PO TID MARLI Stop: 02/01/24 13:59 Last Admin: 01/10/24 14:02 Dose: 1.2 gm Pantoprazole Sodium (Pantoprazole 40 Mg Tab) 40 mg PO QAM MARLI Stop: 02/01/24 10:29 Last Admin: 01/10/24 08:44 Dose: 40 mg Sodium Chloride (Sodium Chloride 0.65% Na Soln 45 Ml ([place])) 1 - 2 sprays NA PRN PRN PRN Reason: Nasal Dryness/Congestion Stop: 01/31/24 17:29 Mental Health & Subst Abuse Tx Psychiatrist Name of Psychiatrist: Aura De Los Santos Psychiatrist's Date Of Appointment With Psychiatric Provider: 01/14/24 Time of Appointment with Psychiatrist: 11:15 AM Psychiatric Appointment Comment: [address] [place] [address] Psychiatrist Release of Information: Obtained, Reviewed and Signed Therapist Name of Therapist: C[facility] Therapist's Phone Number: [phone] Date of Therapist Appointment: 01/15/2024 Time of Therapist Appointment: 1200 Therapy Appointment Comment: please bring insurance card to appt Therapist Release of Information: Obtained, Reviewed and Signed Post Discharge Appointments Primary Care Physician Name Of Family Doctor/PCP: [facility] - Heidy Cordero PA-C Primary Care Date of Future Appointment with PCP: 03/10/24 Time of Appointment with PCP: 1:20 PM [facility] [address] [facility] [address] [facility] Release of Information: Obtained, Reviewed and Signed Contact Information Discharge Discharge Address: [address] [place] [id number]
--- NOTE | 2024-01-11 15:20 | Discharge Summary ---
Date of Service January 11, 2024 History of Present Illness Odell presents for psychiatric admission for worsening depression and SI with possible plans. He notes his mind is always racing "all day" describing that "I either feel nothing or everything there is nothing in between". He endorses depressive symptoms including anhedonia, decreased motivation, social isolation, self-guilt, hopelessness, decreased energy, "angry and sadness", decreased appetite, and increased sleep. SI has been occurring daily. He also endorses symptoms of anxiety including generalized worries, easily overwhelmed, no history of panic attacks. He endorses PTSD symptoms including intrusive memories/flashbacks almost every day, mood changes-numbness or overwhelmed "there's no in between", hypervigilance, emotional lability, decreased concentration, decreased sleep/night terrors at least twice per week. He also identifies some symptoms of ADHD including that it's always hard to concentrate, very talkative as a child. Did well in school growing up. Talked a lot in school was often told to "shut up", was often going to peers desks "I got told to stay in my seat a lot but it was really hard to", gets distracted easily, hard to stay focused. He feels like "I'm pretty lazy" and wishes this could be changed. He feels he is always over analyzing everything he does such as when he's walking or brushing his teeth he feels like he needs to do it in a very specific way. Seems like he's been experiencing multiple symptoms consistent with possible OCD. He is currently prescribed Wellbutrin SR 100mg daily (doesn't feel like it is working, though no side effects, unclear why there haven't been any recent dose adjustments to trial higher dose for low motivation/difficulty with concentration and getting organized for tasks), and mirtazapine 30mg HS (feels it helps with sleep, no side effects) . Psychiatric ROS notable for no current nor history of symptoms of john, psychosis, self-harm nor eating disorder. 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 Physical Exam Mental Examination Appearance: Well Groomed Eye Contact: Avoids Eye Contact Motor Behavior: Unremarkable Speech: Normal Mood: Euthymic Affect: Congruent Thought Process: Intact Thought Content: Intact Hallucinations: None Insight: Poor (to limited) Judgement: Fair Vital Signs (Past 24 Hours) Last Vital Signs Temp 35.9 C L 01/10/24 06:00 Pulse 96 H 01/10/24 21:58 Resp 16 01/10/24 06:00 BP 124/81 01/10/24 21:58 Pulse Ox 99 01/08/24 06:26 O2 Del Method Room Air 01/08/24 06:26 Principal Diagnosis Bipolar 2 Disorder Psychiatric Data See daily stay summary. In short, safety was maintained and the patient was cooperative with care. Initially patient was started on Sertraline and Adderall however presented in hypomanic state with concerns for treatment emergent john in the context of unrealized bipolar 2 disorder. Those medications were d/c and Medication changes included starting Lamotrigine 25mg QAM and Abilify 10mg HS and they tolerated this well. A family session was held and safety plan was completed prior to discharge. Day of Discharge Assessment Today the patient voices readiness for discharge. They note improvement in mood and deny thoughts to harm self or others. Thoughts remain organized and they are improved from admission. There is no evidence of psychosis. They agree to take mediations as prescribed and keep follow-up appointments. They are stable for discharge to outpatient level of care. Transition of Care Transition Of Care Record: was reviewed with the patient Advance Directives Advance Directives Information Provided: No Advance Directives: No Mental Health Advance Directive: No Advance Directives on File: No Living Will: No Power of Flask Pusher: No Advance Directives Reason:: Declines as Mental Health Visit. Suicide Risk Level Suicide Risk Level Comments: Risk Factors Assessment Male: Yes : No Do You Have Access To A Gun?: No Health Problems: Yes Mental Health Diagnoses: Yes Substance Use Disorders: No Previous Attempt: No Family History of Suicide: Yes (attempts) Previous Psychiatric Hospitalization: No Protective Factors Assessment Employed: Yes ([employer]) Stable Relationships: Yes Supportive Family: Yes Discharge Data Lab Results 01/01/24 01/02/24 14:24 Unknown WBC 6.28 RBC 4.81 Hgb 11.9 L Hct 37.8 L MCV 78.6 L MCH 24.7 L MCHC 31.5 L RDW Std Deviation 43.1 RDW Coeff of Hima 15.1 H Plt Count 243 MPV 13.5 H Immature Gran % (Auto) 0.3 Neut % (Auto) 60.1 Lymph % (Auto) 15.1 Cobb % (Auto) 20.2 Eos % (Auto) 3.8 Baso % (Auto) 0.5 Neut # (Auto) 3.77 Lymph # (Auto) 0.95 L Cobb # (Auto) 1.27 H Eos # (Auto) 0.24 Baso # (Auto) 0.03 Immature Gran # (Auto) 0.02 Sodium 135 L Potassium 3.9 Chloride 103 Carbon Dioxide 25 Anion Gap 7 BUN 9 Creatinine 0.85 Est Cr Clr Drug Dosing 117.2 Est GFR ( Amer) 143.4 Est GFR (Non-Af Amer) 123.7 BUN/Creatinine Ratio 10.6 Glucose 100 H Calcium 8.9 Total Bilirubin 0.6 AST 19 ALT 9 Alkaline Phosphatase 84 Total Protein 6.9 Albumin 3.2 L Globulin 3.7 Albumin/Globulin Ratio 0.9 TSH 1.704 Urine Color Dark Yellow Urine Appearance Clear Urine pH 5.5 Ur Specific Campo 1.025 Urine Protein Negative Urine Glucose (UA) Negative Urine Ketones 2+ H Urine Blood Negative Urine Nitrite Negative Urine Bilirubin Negative Urine Urobilinogen Negative Ur Leukocyte Esterase Negative Salicylates < 3.0 L Urine Opiates Screen Neg Ur Methadone, Qual Neg Urine Fentanyl Screen Neg Acetaminophen < 3 L Urine Barbiturates Neg Ur Phencyclidine (PCP) Neg U Amphetamin/Meth Scrn Neg MDMA (Ecstasy) Screen Neg U Benzodiazepines Scrn Neg Ur Cocaine Metabolite Neg U Marijuana (THC) Screen Pos H U Marijuana THC Carboxy 1359 H Drug Screen Comment SEE NOTE Ethyl Alcohol mg/dL < 10.0 SARS-CoV-2, RNA, NAAT NEGATIVE Hospital Course (1) Bipolar 2 disorder: (2) Trichotillomania: (3) ADHD (attention deficit hyperactivity disorder): (4) Crohn's disease: Plan 01/10/2024: Continue medications and treatment plan. 01/09/2024: Dietary consult. Start aripiprazole 10 mg at bedtime. Decrease Lorazepam 0.5mg HS. 01/08/2024: Decrease lorazepam to 1 mg at bedtime. Start lamotrigine 25 mg daily. 01/07/2024: D/c sertraline and Adderall. Start lorazepam 2 mg at bedtime. 01/06/2024: Continue current medications and treatment plan. 01/05/2024: -Decrease Adderall to 5mg IR BID morning and afternoon -Continue sertraline to 50mg qd -Continue clonidine 0.1mg HS 01/04/2024: -Increase Adderall ER to 20mg qAM tomorrow -Discontinue mirtazapine 15mg HS change to prn for insomnia -Increase sertraline to 50mg qd -Continue clonidine 0.1mg HS 01/03/2024: -Start Adderall IR test dose this afternoon of 5mg, Adderall XR 10mg starting tomorrow morning -Start sertraline 25mg qd -Decrease mirtazapine to 15mg HS -Continue clonidine 0.1mg HS 01/02/2024: The patient was admitted to the [facility]) on q15 min checks (behavioral with suicide precautions) for safety. The patient will participate in group, recreational, and milieu therapies and will be offered additional individual and family sessions as clinically appropriate. -Start clonidine 0.1mg HS -Hold off on Wellbutrin for now -Continue with mirtazapine 30mg HS -Likely will consider SSRI vs Strattera vs stimulant trial based on Y-BOCS and ADHD self-report -Y-BOCS -ADHD self-report checklist Mental Health & Subst Abuse Tx Psychiatrist Name of Psychiatrist: Aura De Los Santos Psychiatrist's Date Of Appointment With Psychiatric Provider: 01/14/24 Time of Appointment with Psychiatrist: 11:15 AM Psychiatric Appointment Comment: [address] [facility] [address] Psychiatrist Release of Information: Obtained, Reviewed and Signed Therapist Name of Therapist: [facility]'s Phone Number: [phone] Date of Therapist Appointment: 01/15/2024 Time of Therapist Appointment: 1200 Therapy Appointment Comment: please bring insurance card to appt Therapist Release of Information: Obtained, Reviewed and Signed Post Discharge Appointments Primary Care Physician Name Of Family Doctor/PCP: [facility] - Heidy Cordero PA-C Primary Care Date of Future Appointment with PCP: 03/10/24 Time of Appointment with PCP: 1:20 PM [facility] [address] [facility] Release of Information: Obtained, Reviewed and Signed Contact Information Discharge Discharge Address: [address] [place] [address] Discharge Plan Discharge Items Patient Disposition: Home - Self-Care Reason For Visit: UNSPECIFIED DEPRESSIVE DISORDER Discharge Diagnosis: MDD, recurrent episode, severe ADHD Trichotillomania Chrohn's Disease Condition on Discharge: Fair Activity: Resume your previous activity Non-emergency contact: Primary Care Provider Call non-emergency contact if: you have any medication questions and your symptoms worsen Follow-up/Referrals: PCP,NO [Primary Care Provider] - Diet: Regular Addtl Attending Provider Instructions: -Continue Lamotrigine 25mg at bedtime for 10 more days -Then take Lamotrigine 50mg at bedtime for 14 days -Continue Abilify 10mg at bedtime Pending Studies at Discharge: No Stand-Alone Forms: My Next Safety, Smoking Cessation Medications and DC Order Prescriptions: New clonidine HCl 0.1 mg Tablet 0.1 mg PO HS Qty: 30 0RF dextroamphetamine-amphetamine 5 mg Tablet 5 mg PO BID@0800,1400 Qty: 60 0RF hydroxyzine HCl 50 mg tablet 50 mg PO HSZ PRN (Reason: anxiety, insomnia) Qty: 30 0RF sertraline 50 mg Tablet 50 mg PO QAM Qty: 30 1RF Continued budesonide 3 mg capsule,delayed,extend.release 9 mg PO QAM famotidine 20 mg tablet 20 mg PO BID omeprazole 20 mg capsule,delayed release(DR/EC) 20 mg PO QAM mesalamine 1.2 gram tablet,delayed release (DR/EC) 1.2 g PO TID Discontinued mirtazapine 30 mg tablet 30 mg PO HS Qty: 30 0RF bupropion HCl 100 mg tablet sustained-release 12 hr 100 mg PO QAM Discharge Orders: Discharge Order (Routine); Ordered 01/11/24 Ordered By: Arnie Brumfield Admission Data Admit Date/Time: 01/01/24 17:26 Attending Provider: Arnie Brumfield Admit Provider: Beckie Sandhu Primary Care Provider: PCP,NO Other Interventions: Discharge Summary Assessment (RN) Last Done: 01/07/24 12:08 PSY Interdisciplinary Discharge Planning Last Done: 01/08/24 08:27 [place] [address] D/C day mgmt > 30 min Patient Type Established History Comprehensive Exam Comprehensive Medical Decision Making High Complexity Diagnoses Bipolar 2 disorder F31.81 Trichotillomania F63.3 ADHD (attention deficit hyperactivity disorder) F90.9 Crohn's disease K50.90
== END 2024-01-11 12:20 | disposition home or self-care (01) | DRG 885 ==
LOC: ED 14:00 → SUATTDRO 17:26 → 3S 17:26